=== PATIENT | male | born 1965 | race American Indian/Alaskan Native ===

== ENCOUNTER 2020-07-11 09:31 | Emergency (ER) | payer MEDICARE ==
--- NOTE | 2020-07-11 10:47 | Event Note ---
ED Screening Note ED Screening Note: Patient is a 54-year-old male who presents to the emergency room presenting signs of acute psychosis Difficult to obtain history due to patient's condition He tells me that whenever "he has sex his hair hurts" He has very tangential speech He is able to tell me that he ran out of his medications but is not able to tell me what they are or how long he has been out of them He is unable to provide me a history When asked if he wants to hurt himself he responds "no" When asked if he wants to hurt anyone else he responds "no" This initial assessment/diagnostic orders/clinical plan/treatment(s) is/are subject to change based on patients health status, clinical progression and re- assessment by fellow clinical providers in the ED. Further treatment and workup at subsequent clinical providers discretion. Patient/guardian urged not to elope from the ED as their condition may be serious if not clinically assessed and managed. Initial orders include: ED hold orders placed due to acute psychosis Mental health clearance orders placed Nurse Zayda and charge nurse Chase notified that patient needs to be escorted to mental health room ROLANDO
[2020-07-11] MEDS ORDERED: HALOPERIDOL LACTATE 5 MG/1 ML INJ IM PRN (11:22)
[2020-07-11] MEDS ORDERED: LORazepam 2 MG/ML VIAL IM PRN (11:22)
--- NOTE | 2020-07-11 11:28 | Emergency Department Report ---
ED General Adult HPI - General Chief complaint: Psych Stated complaint: TAMY PARADA PUI?: No Time Seen by Provider: 07/11/20 10:44 Source: patient, RN notes reviewed, old records reviewed Mode of arrival: Ambulatory Limitations: Other (This patient is acutely psychotic) - History of Present Illness Initial comments: The patient was evaluated in the emergency department for symptoms described in the history of present illness. He/she was evaluated in the context of the global COVID-19 pandemic, which necessitated consideration that the patient might be at risk for infection with the virus that causes COVID-19. Institutional protocols and algorithms that pertain to the evaluation of patients at risk for COVID-19 are in a state of rapid change based on information released by regulatory bodies including the CDC and federal and state organizations. These policies and algorithms were followed during the patient's care in the emergency department. Please note that these policies, procedures and recommendations changed on a rapid basis. The patient is a 54-year-old gentleman with a history of hypertension, and psychiatric disease. He is reportedly dropped off to this emergency room by a friend or relative, apparently, as per nursing documentation, for inability to care for self. The patient is not currently accompanied by friends, family at this time for collateral information or additional history. Patient denies physical pain to me at this time. He states "my hair has sex." The patient is acutely psychotic, tangential, but indicates he is not having physical pain. He is not able to describe the qualitative nature of her symptoms, exacerbating factors, relieving factors, or aggravating factors. Patient has envelopes and medical records with him, from 2018, and 2019. He appears to have a history of hypertension, and schizoaffective disorder. He has previously been on lisinopril, HCTZ, olanzapine, and escitalopram. -: unknown Radiation: other Quality: other Consistency: other Improves with: other Worsens with: other Associated Symptoms: other - Related Data Allergies Allergy/AdvReac Type Severity Reaction Status Date / Time No Known Allergies Allergy Verified 07/11/20 11:24 ED Review of Systems ROS: Stated complaint: TAMY EVCAREN Other details as noted in HPI Comment: Unobtainable due to pts medical conditions (Patient is acutely psychotic and disorganized) ED Past Medical Hx - Past Medical History Hx Hypertension: Yes Hx Diabetes: Yes Additional medical history: SCHIZOEFFCTIVE DISORDER - Social History Smoking Status: Never Smoker Substance Use Type: None ED Physical Exam - General Limitations: Other (Acute psychosis) General appearance: in no apparent distress, obese - Head Head exam: Present: atraumatic, normocephalic - Eye Eye exam: Present: normal appearance, EOMI. Absent: nystagmus - ENT ENT exam: Present: normal exam, mucous membranes moist, normal external ear exam, other (The patient is edentulous. The patient has moist mucous membranes.) - Neck Neck exam: Present: normal inspection, full ROM. Absent: tenderness, meningismus - Respiratory Respiratory exam: Present: normal lung sounds bilaterally. Absent: respiratory distress, wheezes, rales, rhonchi, stridor, chest wall tenderness, accessory muscle use, decreased breath sounds, prolonged expiratory - Cardiovascular Cardiovascular Exam: Present: regular rate, normal rhythm, normal heart sounds. Absent: bradycardia, tachycardia, irregular rhythm, systolic murmur, diastolic murmur, rubs, gallop - GI/Abdominal GI/Abdominal exam: Present: soft. Absent: distended, tenderness, guarding, rebound, rigid, pulsatile mass - Rectal Rectal exam: Present: deferred - Extremities Exam Extremities exam: Present: normal inspection, full ROM, other (2+ pulses noted in the bilateral upper and lower extremities. There is no palpable cord. negative Homans sign. Muscular compartments are soft. The pelvis is stable.). Absent: pedal edema, calf tenderness - Back Exam Back exam: Present: normal inspection, full ROM. Absent: tenderness, CVA tenderness (R), CVA tenderness (L), paraspinal tenderness, vertebral tenderness - Neurological Exam Neurological exam: Present: alert, other (The patient walks with a steady gait. There is no facial droop. The tongue is midline. There is 5 out of 5 strength in 4 extremities. Sensation is intact to light touch in 4 extremities) - Psychiatric Psychiatric exam: Absent: agitated - Skin Skin exam: Present: warm, dry, intact, normal color. Absent: rash ED Course Vital Signs 07/11/20 07/11/20 09:49 11:45 Temperature 98.9 F Pulse Rate 87 86 Respiratory 20 24 Rate Blood Pressure 170/111 Blood Pressure 194/140 [Right] O2 Sat by Pulse 93 100 Oximetry - Reevaluation(s) Reevaluation #1: 07/11/20 11:29 Differential diagnosis, including but not limited to: Psychosis, medical clearance for psychiatric placement, chronic hypertension Assessment and plan: 54-year-old gentleman, who is afebrile with reassuring vital signs with exception of chronic hypertension, as per review of old med ications, supposed to be on lisinopril and HCTZ, elevated blood pressure not acutely decompensated, does not require emergent de-escalation at this time, please reference the [employer] clinical policy on asymptomatic hypertension, who essentially is presenting with what appears to be decompensated psychosis, likely secondary to medication noncompliance. Initial pulse ox of 93% reviewed and appreciated. X-ray the chest will be obtained, and I have specifically requested that nursing team repeat pulse oximetry. If patient persistently hypoxic, he will be placed on isolation, and he will be given a trial of ambulation. Assuming no significant desaturation, patient would not require medical admission for possible Covid. Patient is placed on a 1013 for acute psychosis and inability to care for self/acute crisis. Appropriate laboratory studies will be ordered to exclude emergent toxicologic/metabolic conditions. Urinalysis pending. Reassess after initial data points. 07/11/20 13:00 X-ray unremarkable. Laboratory studies thus far unremarkable, CK, magnesium level pending. Chest x-ray unremarkable, repeat pulse ox acceptable. Elevated blood pressure chronic. 07/11/20 14:28 Laboratory studies unremarkable. CK, magnesium unremarkable. Urinalysis pending. At this point time, patient does not appear to have an immediate medical contraindication to psychiatric admission, evaluation, consultation and placement. ED Medical Decision Making - Lab Data Result diagrams: 07/11/20 11:23 07/11/20 11:23 Vital Signs 07/11/20 09:49 Temperature 98.9 F Pulse Rate 87 Respiratory 20 Rate Blood Pressure 170/111 O2 Sat by Pulse 93 Oximetry Vital Signs 07/11/20 07/11/20 09:49 11:45 Temperature 98.9 F Pulse Rate 87 86 Respiratory 20 24 Rate Blood Pressure 170/111 Blood Pressure 194/140 [Right] O2 Sat by Pulse 93 100 Oximetry Lab Results 07/11/20 07/11/20 07/11/20 Range/Units 11:23 11:23 11:23 WBC (4.5-11.0) K/mm3 RBC (3.65-5.03) M/mm3 Hgb (11.8-15.2) gm/dl Hct (35.5-45.6) % MCV (84-94) fl MCH (28-32) pg MCHC (32-34) % RDW (13.2-15.2) % Plt Count (140-440) K/mm3 Sodium 139 (137-145) mmol/L Potassium 3.5 L (3.6-5.0) mmol/L Chloride 101.9 (98-107) mmol/L Carbon Dioxide 27 (22-30) mmol/L Anion Gap 14 mmol/L BUN 13 (9-20) mg/dL Creatinine 1.0 (0.8-1.3) mg/dL Estimated GFR > 60 ml/min BUN/Creatinine Ratio 13 % Glucose 88 (75-100) mg/dL Calcium 9.0 (8.4-10.2) mg/dL Total Bilirubin 1.30 H (0.1-1.2) mg/dL AST 19 (5-40) units/L ALT 15 (7-56) units/L Alkaline Phosphatase 73 (35-129) units/L Total Protein 6.8 (6.3-8.2) g/dL Albumin 4.3 (3.9-5) g/dL Albumin/Globulin Ratio 1.7 % Salicylates < 0.3 L (2.8-20.0) mg/dL Acetaminophen 5.0 L (10.0-30.0) ug/mL Plasma/Serum Alcohol (0-0.07) % 07/11/20 07/11/20 Range/Units 11:23 11:23 WBC 8.1 (4.5-11.0) K/mm3 RBC 4.51 (3.65-5.03) M/mm3 Hgb 13.9 (11.8-15.2) gm/dl Hct 40.7 (35.5-45.6) % MCV 90 (84-94) fl MCH 31 (28-32) pg MCHC 34 (32-34) % RDW 13.1 L (13.2-15.2) % Plt Count 166 (140-440) K/mm3 Sodium (137-145) mmol/L Potassium (3.6-5.0) mmol/L Chloride (98-107) mmol/L Carbon Dioxide (22-30) mmol/L Anion Gap mmol/L BUN (9-20) mg/dL Creatinine (0.8-1.3) mg/dL Estimated GFR ml/min BUN/Creatinine Ratio % Glucose (75-100) mg/dL Calcium (8.4-10.2) mg/dL Total Bilirubin (0.1-1.2) mg/dL AST (5-40) units/L ALT (7-56) units/L Alkaline Phosphatase (35-129) units/L Total Protein (6.3-8.2) g/dL Albumin (3.9-5) g/dL Albumin/Globulin Ratio % Salicylates (2.8-20.0) mg/dL Acetaminophen (10.0-30.0) ug/mL Plasma/Serum Alcohol < 0.01 (0-0.07) % - Radiology Data Radiology results: pending, report reviewed, image reviewed X-ray of the chest is negative for acute findings. CHEST 1 VIEW INDICATION: Medical clearance, pulse ox 93%. COMPARISON: None FINDINGS: Support devices: None. Heart: Within normal limits. Lungs/Pleura: No acute air space or interstitial disease. Additional findings: None. IMPRESSION: No acute findings. Signer Name: Smith Gutierrez Jr, MD Signed: 07/11/2020 10:50 AM Workstation Name: [id number] Critical care attestation.: If time is entered above; I have spent that time in minutes in the direct care of this critically ill patient, excluding procedure time. ED Disposition Clinical Impression: Elevated blood pressure reading, Psychosis, Medical clearance for psychiatric admission Disposition: [id number]/TX-65 PSY HOSP/PSY UNIT Is pt being admited?: No Does the pt Need Aspirin: No Condition: Good Referrals: PRIMARY CARE, [Primary Care Provider] - 3-5 Days
[2020-07-11 11:44] LABS: Hematocrit 40.7 % (35.5-45.6); Hemoglobin 13.9 gm/dl (11.8-15.2); Mean Corpuscular HGB Conc 34 % (32-34); Mean Corpuscular Volume 90 fl (84-94); Platelet Count 166 K/mm3 (140-440); Red Blood Count 4.51 M/mm3 (3.65-5.03); Red Cell Distribution Width 13.1 % (13.2-15.2)
--- NOTE | 2020-07-11 11:55 | XRay Report ---
CHEST 1 VIEW INDICATION: Medical clearance, pulse ox 93%. COMPARISON: None FINDINGS: Support devices: None. Heart: Within normal limits. Lungs/Pleura: No acute air space or interstitial disease. Additional findings: None. IMPRESSION: No acute findings. Signer Name: Smith Gutierrez Jr, MD Signed: 07/11/2020 11:50 AM Workstation Name: [id number]
[2020-07-11 12:08] LABS: Alanine Aminotransferase 15 units/L (7-56); Albumin 4.3 g/dL (3.9-5); BUN/Creatinine Ratio 13; Blood Urea Nitrogen 13 mg/dL (9-20); Hemolysis Index 10
[2020-07-11] MEDS: LISINOPRIL 5 MG TAB PO SCH (12:16)
[2020-07-11] MEDS: hydroCHLOROthiazide 25 MG TAB PO SCH (12:16)
[2020-07-11 17:10] LABS: Amphetamine Screen,Urine Negative; Benzodiazepines Screen,Urine Negative; Cannabinoid Screen,Urine Negative; Cocaine Screen,Urine Negative; Methadone Screen,Urine Negative; Opiate Screen,Urine Negative
[2020-07-11 17:15] LABS: Bacteria,Urine 1+ /HPF (Negative); Bilirubin,Urine NEG (Negative); Blood,Urine NEG (Negative); Color,Urine Yellow (Yellow); Mucus,Urine FEW /HPF; Protein,Urine <15 mg/dL mg/dL (Negative); Urobilinogen,Urine < 2.0 mg/dL (<2.0)
--- NOTE | 2020-07-12 10:54 | Consultation ---
History of Present Illness - Reason for Consult Consult date: 07/12/20 Reason for consult: psychosis - History of Present Psychiatric Illness Per ED Note: The patient is a 54-year-old gentleman with a history of hypertension, and psychiatric disease. He is reportedly dropped off to this emergency room by a friend or relative, apparently, as per nursing documentation, for inability to care for self. The patient is not currently accompanied by friends, family at this time for collateral information or additional history. Patient denies physical pain to me at this time. He states "my hair has sex." The patient is acutely psychotic, tangential, but indicates he is not having physical pain. He is not able to describe the qualitative nature of her symptoms, exacerbating factors, relieving factors, or aggravating factors. Patient has envelopes and medical records with him, from 2018, and 2019. He appears to have a history of hypertension, and schizoaffective disorder. He has previously been on lisinopril, HCTZ, olanzapine, and escitalopram. During my assessment of 54y/o Freddy Sosa, he is lying down awake. He is a/o x 2. He is a poor historian and unable to give a lot of insight. His thoughts are disorganized. He seems unsure of the questions being asked of him. He is responding to internal stimuli. The patient is pausing in between responses and appears to be listening to something. When asking was he hallucinating, the patient paused and starting tapping his leg. He says "no, I don't think so. I got a headache." The patient did not respond when asked about SI/HI. He just kept tapping his finger on his leg, replying "I got a headache." He then says "I got problems, psychological problems." He could not tell me what the problems were. The patient then began repeating, "I got problems" like 4 times in a row. PAST PSYCHIATRIC HISTORY Unable to assess PAST MEDICAL HISTORY: HTN documented Family Psychiatric History: None reported or documented SOCIAL HISTORY Unable to assess REVIEW OF SYSTEMS Unable to assess MENTAL STATUS EXAMINATION General Appearance and Behavior: Age appropriate, wearing appropriate clothes, good eye contact, calm, cooperative Mood: N/A Affect and affective range: restricted Thought Process: disorganized Thought Content: responding to internal stimuli Speech: Normal volume, Regular rate and rhythm Suicidal Ideation: N/A Homicidal Ideation: N/A Hallucinations: N/A Delusions: None elicited Impulse Control: normal Insight and Judgment: Poor Memory/Cognition: Poor Attention: Poor Orientation: a/o x 2 Assessment (1) Acute Psychosis Plan Start Risperidone 0.5mg po BID Start Trazodone 50mg po qhs Sitter per primary Medical: per primary Disposition: Recommend acute inpatient psychiatric treatment The patient to abstain from all illicit drug use Will follow. Thank you for this consult. Case staffed with Dr. Hurtado Medications and Allergies Allergies Allergy/AdvReac Type Severity Reaction Status Date / Time No Known Allergies Allergy Verified 07/11/20 11:24 Active Meds: Active Medications Haloperidol Lactate (Haloperidol Lactate 5 Mg/1 Ml Inj) 5 mg IM Q6HR PRN PRN Reason: Agitation Last Admin: 07/12/20 08:39 Dose: 5 mg Documented by: Hydrochlorothiazide (Hydrochlorothiazide 25 Mg Tab) 25 mg PO QDAY [facility] Last Admin: 07/11/20 12:16 Dose: 25 mg Documented by: Lisinopril (Lisinopril 5 Mg Tab) 5 mg PO QDAY [facility] Last Admin: 07/11/20 12:16 Dose: 5 mg Documented by: Lorazepam (Lorazepam 2 Mg/Ml Vial) 2 mg IM Q4HR PRN PRN Reason: Agitation Last Admin: 07/12/20 08:39 Dose: 2 mg Documented by: Mental Status Exam - Vital signs Last Vital Signs Temp 98.9 F 07/12/20 09:20 Pulse 88 07/12/20 09:20 Resp 156 H 07/12/20 09:20 BP 160/110 07/12/20 09:20 Pulse Ox 100 07/12/20 09:20 Results Result Diagrams: 07/11/20 11:23 07/11/20 11:23 Abnormal lab results 07/11/20 07/11/20 07/11/20 Range/Units 11:23 11:23 11:23 RDW (13.2-15.2) % Potassium 3.5 L (3.6-5.0) mmol/L Total Bilirubin 1.30 H (0.1-1.2) mg/dL Total Creatine Kinase (55-170) units/L Salicylates < 0.3 L (2.8-20.0) mg/dL Acetaminophen 5.0 L (10.0-30.0) ug/mL 07/11/20 07/11/20 Range/Units 11:23 11:23 RDW 13.1 L (13.2-15.2) % Potassium (3.6-5.0) mmol/L Total Bilirubin (0.1-1.2) mg/dL Total Creatine Kinase 357 H (55-170) units/L Salicylates (2.8-20.0) mg/dL Acetaminophen (10.0-30.0) ug/mL All other labs normal.
[2020-07-12] MEDS: hydroCHLOROthiazide 25 MG TAB PO SCH (11:09)
[2020-07-12] MEDS: LISINOPRIL 5 MG TAB PO SCH (11:09)
[2020-07-12] MEDS ORDERED: risperiDONE 0.25 MG TAB PO SCH (12:00)
[2020-07-12 20:04] VITALS: BP 134/89
[2020-07-12] MEDS ORDERED: traZODone 50 MG TAB PO SCH (22:00)
== END 2020-07-12 20:04 ==
LOC: ED 09:31
DX: F29 Unspecified psychosis not due to a substance or known physiological condition (principal); Z20.822 Contact with and (suspected) exposure to COVID-19; Z04.6 Encounter for general psychiatric examination, requested by authority; I10 Essential (primary) hypertension; E11.9 Type 2 diabetes mellitus without complications
CPT/HCPCS: 36415; 71045; 80053; 80307; 80320; 81001; 82550; 82962; 83735; 85027; 96372; G0480; J1630; J2060; U0003

== ENCOUNTER 2020-07-12 15:15 | Inpatient (IN) | payer MEDICARE ==
[2020-07-12] MEDS: traZODone 50 MG TAB PO SCH (22:02)
[2020-07-13 07:39] LABS: Basophils % (Auto) 0.4 % (0.0-1.8); Eosinophils # (Auto) 0.1 K/mm3 (0.0-0.4); Eosinophils % (Auto) 1.1 % (0.0-4.3); Hematocrit 47.4 % (35.5-45.6); Hemoglobin 15.6 gm/dl (11.8-15.2); Lymphocytes # (Auto) 1.7 K/mm3 (1.2-5.4); Lymphocytes % (Auto) 21.1 % (13.4-35.0); Mean Corpuscular HGB Conc 33 % (32-34); Mean Corpuscular Volume 92 fl (84-94); Monocytes # (Auto) 0.4 K/mm3 (0.0-0.8); Monocytes % (Auto) 5.3 % (0.0-7.3); Platelet Count 203 K/mm3 (140-440); Red Blood Count 5.16 M/mm3 (3.65-5.03); Red Cell Distribution Width 13.1 % (13.2-15.2)
[2020-07-13 08:01] LABS: Alanine Aminotransferase 15 units/L (7-56); Albumin 4.6 g/dL (3.9-5); BUN/Creatinine Ratio 13; Blood Urea Nitrogen 14 mg/dL (9-20); Calcium 10.2 mg/dL (8.4-10.2); Chol/HDL Ratio 1.71 %; HDL Cholesterol 66 mg/dL (40-59); Hemolysis Index 20; LDL Cholesterol,Direct 44 mg/dL (50-130)
--- NOTE | 2020-07-13 10:11 | History and Physical Report ---
GP History & Physical - History of Present Illness Date of admission: 07/12/20 Date of Examination: 07/13/20 Reason for Admission: Impaired reality testing, Severe anxiety/depression, Unable to care for self History of Present Illness: Per ED Note: The patient is a 54-year-old gentleman with a history of hypertension, and psychiatric disease. He is reportedly dropped off to this emergency room by a friend or relative, apparently, as per nursing documentation, for inability to care for self. The patient is not currently accompanied by friends, family at this time for collateral information or additional history. Patient denies physical pain to me at this time. He states "my hair has sex." The patient is acutely psychotic, tangential, but indicates he is not having physical pain. He is not able to describe the qualitative nature of her symptoms, exacerbating factors, relieving factors, or aggravating factors. Patient has envelopes and medical records with him, from 2018, and 2019. He appears to have a history of hypertension, and schizoaffective disorder. He has previously been on lisinopril, HCTZ, olanzapine, and escitalopram. Per my assessment in the ED: During my assessment of 54y/o Agus Sosa, he is lying down awake. He is a/o x 2. He is a poor historian and unable to give a lot of insight. His thoughts are disorganized. He seems unsure of the questions being asked of him. He is responding to internal stimuli. The patient is pausing in between responses and appears to be listening to something. When asking was he hallucinating, the patient paused and starting tapping his leg. He says "no, I don't think so. I got a headache." The patient did not respond when asked about SI/HI. He just kept tapping his finger on his leg, replying "I got a headache." He then says "I got problems, psychological problems." He could not tell me what the problems were. The patient then began repeating, "I got problems" like 4 times in a row. Agus Sosa is a 54y/o male patient who I first saw in the ED. The patient was disorganized and unable to focus and answer questions appropriately. He pauses in between questions. During my assessment today, he is still disorganized, he is rambling, and difficult to follow. The patient has poor insight. He says he is hallucinating. He was unable to verbalize what they were, but continued to rant and ramble. When asking the patient about SI/HI. He replied "I don't know." PAST PSYCHIATRIC HISTORY Unable to assess PAST MEDICAL HISTORY: HTN documented Family Psychiatric History: None reported or documented SOCIAL HISTORY Unable to assess REVIEW OF SYSTEMS Unable to assess MENTAL STATUS EXAMINATION General Appearance and Behavior: Age appropriate, wearing appropriate clothes, good eye contact, calm, cooperative Mood: N/A Affect and affective range: restricted Thought Process: disorganized Thought Content: responding to internal stimuli Speech: Normal volume, Regular rate and rhythm Suicidal Ideation: N/A Homicidal Ideation: N/A Hallucinations: N/A Delusions: None elicited Impulse Control: normal Insight and Judgment: Poor Memory/Cognition: Poor Attention: Poor Orientation: a/o x 2 Assessment (1) Schizophrenia Treatment Plan Patient admitted for inpatient psychiatric evaluation, medication adjustment and close monitoring The patient's behavior, mood, sleep and appetite will be closely monitored. Patient enrolled in individual and group therapeutic sessions and encouraged to attend. Patient provided with a safe and structured environment. Patient's physical health needs will be addressed by the Hospitalist. Hospital ist Consulted Labs including CBC, CMP, Lipid profile and Hemoglobin A1C levels ordered for baseline reference Social Assessment will be completed and the Software Team Leader will work with patient and family to ensure a suitable and safe disposition Medication adjustment will be made as clinically indicated Risperidone 1mg po BID Trazodone 50mg po qhs Depakote DR 125mg po BID Usual Wellness Spiritism/Preservation: - Start Trazodone 50 mg po QHS & 50 mg po QHS PRN between 10 PM & 2 AM for insomnia - Start Melatonin 5 mg po QHS to promote circadian rhythm - Start [place]-3 for brain health, reduce impulsivity, and as adjunctive treatment for mood disorder, continue upon discharge given overall benefits. - Start B1 prophylaxis with 200 mg po for 5 days The patient agreed on the treatment plan, understood the risk, benefit, alternative treatment, potential consequence of no treatment, and gave informed consent. Estimated days: 7 Post hospital care: primary care provider, psychiatric provider This certifies that Agus Sosa will be treated for the symptoms of psychosis, disorganized thoughts and aggression. Case staffed with Dr. Hurtado Legal Status: Voluntary Reaction to Hospitalization: Accepting Medications and Allergies Allergies Allergy/AdvReac Type Severity Reaction Status Date / Time No Known Allergies Allergy Verified 07/11/20 11:24 Home Medications Medication Instructions Recorded Confirmed Last Taken Type Lisinopril [Zestril] 5 mg PO QDAY 07/13/20 07/13/20 07/12/20 10:00 History hydroCHLOROthiazide [HCTZ] 25 mg PO QDAY 07/13/20 07/13/20 07/12/20 10:00 History risperiDONE [RisperDAL] 0.5 mg PO BID 07/13/20 07/13/20 07/12/20 15:00 History traZODone [Desyrel] 50 mg PO QHS 07/13/20 07/13/20 07/12/20 22:00 History Active Meds: Active Medications Trazodone HCl (Trazodone 50 Mg Tab) 50 mg PO QHS [facility] Last Admin: 07/12/20 22:02 Dose: 50 mg Documented by: Results - Results Labs/Vitals: Laboratory Last Values WBC 7.9 K/mm3 (4.5-11.0) 07/13/20 06:57 RBC 5.16 M/mm3 (3.65-5.03) H 07/13/20 06:57 Hgb 15.6 gm/dl (11.8-15.2) H 07/13/20 06:57 Hct 47.4 % (35.5-45.6) H D 07/13/20 06:57 MCV 92 fl (84-94) 07/13/20 06:57 MCH 30 pg (28-32) 07/13/20 06:57 MCHC 33 % (32-34) 07/13/20 06:57 RDW 13.1 % (13.2-15.2) L 07/13/20 06:57 Plt Count 203 K/mm3 (140-440) 07/13/20 06:57 Lymph % (Auto) 21.1 % (13.4-35.0) 07/13/20 06:57 [place] % (Auto) 5.3 % (0.0-7.3) 07/13/20 06:57 Eos % (Auto) 1.1 % (0.0-4.3) 07/13/20 06:57 Baso % (Auto) 0.4 % (0.0-1.8) 07/13/20 06:57 Lymph # (Auto) 1.7 K/mm3 (1.2-5.4) 07/13/20 06:57 [place] # (Auto) 0.4 K/mm3 (0.0-0.8) 07/13/20 06:57 Eos # (Auto) 0.1 K/mm3 (0.0-0.4) 07/13/20 06:57 Baso # (Auto) 0.0 K/mm3 (0.0-0.1) 07/13/20 06:57 Seg Neutrophils % 72.1 % (40.0-70.0) H 07/13/20 06:57 Seg Neutrophils # 5.7 K/mm3 (1.8-7.7) 07/13/20 06:57 Sodium 138 mmol/L (137-145) 07/13/20 06:57 Potassium 3.4 mmol/L (3.6-5.0) L 07/13/20 06:57 Chloride 97.7 mmol/L (98-107) L 07/13/20 06:57 Carbon Dioxide 30 mmol/L (22-30) 07/13/20 06:57 Anion Gap 14 mmol/L 07/13/20 06:57 BUN 14 mg/dL (9-20) 07/13/20 06:57 Creatinine 1.1 mg/dL (0.8-1.3) 07/13/20 06:57 Estimated GFR > 60 ml/min 07/13/20 06:57 BUN/Creatinine Ratio 13 % 07/13/20 06:57 Glucose 100 mg/dL (75-100) 07/13/20 06:57 Hemoglobin A1c 5.5 % (4-6) 07/13/20 06:57 Calcium 10.2 mg/dL (8.4-10.2) 07/13/20 06:57 Total Bilirubin 0.70 mg/dL (0.1-1.2) 07/13/20 06:57 AST 22 units/L (5-40) 07/13/20 06:57 ALT 15 units/L (7-56) 07/13/20 06:57 Alkaline Phosphatase 86 units/L (35-129) 07/13/20 06:57 Total Protein 7.6 g/dL (6.3-8.2) 07/13/20 06:57 Albumin 4.6 g/dL (3.9-5) 07/13/20 06:57 Albumin/Globulin Ratio 1.5 % 07/13/20 06:57 Triglycerides 69 mg/dL (2-149) 07/13/20 06:57 Cholesterol 113 mg/dL (50-199) 07/13/20 06:57 LDL Cholesterol Direct 44 mg/dL (50-130) L 07/13/20 06:57 HDL Cholesterol 66 mg/dL (40-59) H 07/13/20 06:57 Cholesterol/HDL Ratio 1.71 % 07/13/20 06:57 TSH 2.420 mlU/mL (0.270-4.200) 07/13/20 06:57 Last Vital Signs Temp 97.6 F 07/12/20 22:00 Pulse 87 07/12/20 22:00 Resp 18 07/12/20 22:00 BP 142/88 07/12/20 22:00 Pulse Ox 97 07/12/20 22:00 Physical Examination - Constitutional Vitals: Vital Signs Temp Pulse Resp BP Pulse Ox 97.6 F 87 18 142/88 97 07/12/20 22:00 07/12/20 22:00 07/12/20 22:00 07/12/20 22:00 07/12/20 22:00 Temperature -Last 24 Hours Temperature 97.6 F Mental Status Exam - Vital signs Last Vital Signs Temp 97.6 F 07/12/20 22:00 Pulse 87 07/12/20 22:00 Resp 18 07/12/20 22:00 BP 142/88 07/12/20 22:00 Pulse Ox 97 07/12/20 22:00 Physician Certification - Certification Statement Physician Certification Statement: This is an acknowledgement statement that AGUS SOSA is a 54 year old M who requires inpatient psychiatric admission for treatment which could reasonably be expected to improve the patient's condition for Estimated period of time patient will need to remain in the hospital: [ ] Plan for post-hospital care: [ ]
[2020-07-13] MEDS: risperiDONE 1 MG TAB PO SCH ×2 (10:43→21:43)
[2020-07-13] MEDS: DIVALPROEX DR 125 MG TAB PO SCH ×2 (10:43→21:43)
--- NOTE | 2020-07-13 21:01 | Consultation ---
Medications and Allergies Allergies Allergy/AdvReac Type Severity Reaction Status Date / Time No Known Allergies Allergy Verified 07/11/20 11:24 Home Medications Medication Instructions Recorded Confirmed Last Taken Type Lisinopril [Zestril] 5 mg PO QDAY 07/13/20 07/13/20 07/12/20 10:00 History hydroCHLOROthiazide [HCTZ] 25 mg PO QDAY 07/13/20 07/13/20 07/12/20 10:00 History risperiDONE [RisperDAL] 0.5 mg PO BID 07/13/20 07/13/20 07/12/20 15:00 History traZODone [Desyrel] 50 mg PO QHS 07/13/20 07/13/20 07/12/20 22:00 History Active Meds: Active Medications Divalproex Sodium (Divalproex Dr 125 Mg Tab) 125 mg PO BID [facility] Last Admin: 07/13/20 10:43 Dose: 125 mg Documented by: Risperidone (Risperidone 1 Mg Tab) 1 mg PO BID [facility] Last Admin: 07/13/20 10:43 Dose: 1 mg Documented by: Trazodone HCl (Trazodone 50 Mg Tab) 50 mg PO QHS [facility] Last Admin: 07/12/20 22:02 Dose: 50 mg Documented by: Exam - Constitutional Vitals: Temp Pulse Resp BP Pulse Ox 98.1 F 97 H 20 139/91 98 07/13/20 08:41 07/13/20 08:41 07/13/20 08:41 07/13/20 08:41 07/13/20 08:41 Results - Labs CBC & Chem 7: 07/13/20 06:57 07/13/20 06:57 Labs: Abnormal lab results 07/13/20 07/13/20 Range/Units 06:57 06:57 RBC 5.16 H (3.65-5.03) M/mm3 Hgb 15.6 H (11.8-15.2) gm/dl Hct 47.4 H D (35.5-45.6) % RDW 13.1 L (13.2-15.2) % Seg Neutrophils % 72.1 H (40.0-70.0) % Potassium 3.4 L (3.6-5.0) mmol/L Chloride 97.7 L (98-107) mmol/L LDL Cholesterol Direct 44 L (50-130) mg/dL HDL Cholesterol 66 H (40-59) mg/dL
[2020-07-13] MEDS: traZODone 50 MG TAB PO SCH (21:43)
[2020-07-14] MEDS: ACETAMINOPHEN 325 MG TAB PO PRN (01:21)
--- NOTE | 2020-07-14 07:49 | Progress Note ---
Subjective Date of service: 07/14/20 Principal diagnosis: (1) Schizophrenia Subjective Comment: Psych Nurse: pt has been responding to internal stimuli most of the day. pt has been talking and laughing to himself, sprinting up and down the halls. Pt has been compliant w/ meds and has been able to focus on task off and on. Pt has been carrying and looking at a sheet of paper that has a word search puzzle on it most of the day. Pt has also been attempting to open the cabinets in the day room several times. Close monitoring continues. Psych Patient appears disorganized, was seen on the floor, relaxing moving extremities and tapping both wall and floor, appears restless too. Patient can be head talking to himself, appears tangential in responses, states that he does not know what to do, does not want to stay in the bed, sometimes can be had mumbling. Patient seems to be responding to internal stimulus, seen holding the Bible but unable to read it. MENTAL STATUS EXAMINATION General Appearance and Behavior: Age appropriate, good hygiene, not wearing appropriate clothes, good eye contact, cooperative polite with questioning. Cooperation: Participating/engaged Psychomotor Behavior: Psychomotor agitation Mood: Good Affect and affective range: euthymic, euphoric Thought Process:Circumstantial, Illogical, Thought Content: Flight of ideas, Illogical, Grandiose, Speech: pressured, loud volume at times Intellectual Functioning: Average Suicidal Ideation: Denies SI Homicidal Ideation: Denies HIl Impulse Control: Impaired Insight and Judgment: Limited insight and judgment Memory: Normal, Attention: Divided attention impaired Orientation: Alert, oriented, Assessment (1) Schizophrenia Treatment Plan Patient is very disorganized, appears manic and restless, did not also sleep overnight, pacing about and entering other patient rooms, appears to be a danger to slef and other patient, will put him on PRN and change meds Patient admitted for inpatient psychiatric evaluation, medication adjustment and close monitoring The patient's behavior, mood, sleep and appetite will be closely monitored. Patient enrolled in individual and group therapeutic sessions and encouraged to attend. Patient provided with a safe and structured environment. Patient's physical health needs will be addressed by the Hospitalist. Rikki guevara Consulted Labs including CBC, CMP, Lipid profile and Hemoglobin A1C levels ordered for baseline reference Social Assessment will be completed and the Tape Edge Machine Operator will work with patient and family to ensure a suitable and safe disposition Medication adjustment will be made as clinically indicated Risperidone 1mg po BID idscontinued Trazodone 50mg po qhs discontinued Depakote DR increased to 250 mg po TID Start patient on Geodon 20 mg BID and Remeron 15 mg QHS Usual Wellness Evangelical/Preservation: - Start Trazodone 50 mg po QHS & 50 mg po QHS PRN between 10 PM & 2 AM for insomnia - Start Melatonin 5 mg po QHS to promote circadian rhythm - Start [place]-3 for brain health, reduce impulsivity, and as adjunctive treatment for mood disorder, continue upon discharge given overall benefits. - Start B1 prophylaxis with 200 mg po for 5 days The patient agreed on the treatment plan, understood the risk, benefit, alternative treatment, potential consequence of no treatment, and gave informed consent. Estimated days: 7 Post hospital care: primary care provider, psychiatric provider This certifies that Freddy Sosa will be treated for the symptoms of psychosis, disorganized thoughts and aggression. Case staffed with Dr. Hurtado Medications and Allergies Allergies Allergy/AdvReac Type Severity Reaction Status Date / Time No Known Allergies Allergy Verified 07/11/20 11:24 Home Medications Medication Instructions Recorded Confirmed Last Taken Type Lisinopril [Zestril] 5 mg PO QDAY 07/13/20 07/13/20 07/12/20 10:00 History hydroCHLOROthiazide [HCTZ] 25 mg PO QDAY 07/13/20 07/13/20 07/12/20 10:00 History risperiDONE [RisperDAL] 0.5 mg PO BID 07/13/20 07/13/20 07/12/20 15:00 History traZODone [Desyrel] 50 mg PO QHS 07/13/20 07/13/20 07/12/20 22:00 History Active Meds: Active Medications Acetaminophen (Acetaminophen 325 Mg Tab) 650 mg PO Q6H PRN PRN Reason: Pain, Mild (1-3) Last Admin: 07/14/20 01:21 Dose: 650 mg Documented by: Divalproex Sodium (Divalproex Dr 125 Mg Tab) 125 mg PO BID [facility] Last Admin: 07/13/20 21:43 Dose: 125 mg Documented by: Risperidone (Risperidone 1 Mg Tab) 1 mg PO BID [facility] Last Admin: 07/13/20 21:43 Dose: 1 mg Documented by: Trazodone HCl (Trazodone 50 Mg Tab) 50 mg PO QHS [facility] Last Admin: 07/13/20 21:43 Dose: 50 mg Documented by: Results - Results Labs/Vitals: Laboratory Last Values WBC 7.9 K/mm3 (4.5-11.0) 07/13/20 06:57 RBC 5.16 M/mm3 (3.65-5.03) H 07/13/20 06:57 Hgb 15.6 gm/dl (11.8-15.2) H 07/13/20 06:57 Hct 47.4 % (35.5-45.6) H D 07/13/20 06:57 MCV 92 fl (84-94) 07/13/20 06:57 MCH 30 pg (28-32) 07/13/20 06:57 MCHC 33 % (32-34) 07/13/20 06:57 RDW 13.1 % (13.2-15.2) L 07/13/20 06:57 Plt Count 203 K/mm3 (140-440) 07/13/20 06:57 Lymph % (Auto) 21.1 % (13.4-35.0) 07/13/20 06:57 [place] % (Auto) 5.3 % (0.0-7.3) 07/13/20 06:57 Eos % (Auto) 1.1 % (0.0-4.3) 07/13/20 06:57 Baso % (Auto) 0.4 % (0.0-1.8) 07/13/20 06:57 Lymph # (Auto) 1.7 K/mm3 (1.2-5.4) 07/13/20 06:57 [place] # (Auto) 0.4 K/mm3 (0.0-0.8) 07/13/20 06:57 Eos # (Auto) 0.1 K/mm3 (0.0-0.4) 07/13/20 06:57 Baso # (Auto) 0.0 K/mm3 (0.0-0.1) 07/13/20 06:57 Seg Neutrophils % 72.1 % (40.0-70.0) H 07/13/20 06:57 Seg Neutrophils # 5.7 K/mm3 (1.8-7.7) 07/13/20 06:57 Sodium 138 mmol/L (137-145) 07/13/20 06:57 Potassium 3.4 mmol/L (3.6-5.0) L 07/13/20 06:57 Chloride 97.7 mmol/L (98-107) L 07/13/20 06:57 Carbon Dioxide 30 mmol/L (22-30) 07/13/20 06:57 Anion Gap 14 mmol/L 07/13/20 06:57 BUN 14 mg/dL (9-20) 07/13/20 06:57 Creatinine 1.1 mg/dL (0.8-1.3) 07/13/20 06:57 Estimated GFR > 60 ml/min 07/13/20 06:57 BUN/Creatinine Ratio 13 % 07/13/20 06:57 Glucose 100 mg/dL (75-100) 07/13/20 06:57 POC Glucose 95 mg/dL (70-105) 07/13/20 16:02 Hemoglobin A1c 5.5 % (4-6) 07/13/20 06:57 Calcium 10.2 mg/dL (8.4-10.2) 07/13/20 06:57 Total Bilirubin 0.70 mg/dL (0.1-1.2) 07/13/20 06:57 AST 22 units/L (5-40) 07/13/20 06:57 ALT 15 units/L (7-56) 07/13/20 06:57 Alkaline Phosphatase 86 units/L (35-129) 07/13/20 06:57 Total Protein 7.6 g/dL (6.3-8.2) 07/13/20 06:57 Albumin 4.6 g/dL (3.9-5) 07/13/20 06:57 Albumin/Globulin Ratio 1.5 % 07/13/20 06:57 Triglycerides 69 mg/dL (2-149) 07/13/20 06:57 Cholesterol 113 mg/dL (50-199) 07/13/20 06:57 LDL Cholesterol Direct 44 mg/dL (50-130) L 07/13/20 06:57 HDL Cholesterol 66 mg/dL (40-59) H 07/13/20 06:57 Cholesterol/HDL Ratio 1.71 % 07/13/20 06:57 TSH 2.420 mlU/mL (0.270-4.200) 07/13/20 06:57 Last Vital Signs Temp 97.3 F L 07/13/20 21:00 Pulse 79 07/13/20 21:00 Resp 15 07/13/20 21:00 BP 143/93 07/13/20 21:00 Pulse Ox 98 07/13/20 21:00
[2020-07-14] MEDS: risperiDONE 1 MG TAB PO SCH (10:29)
[2020-07-14] MEDS: DIVALPROEX DR 125 MG TAB PO SCH ×3 (10:29→20:55)
[2020-07-14] MEDS ORDERED: HALOPERIDOL LACTATE 5 MG/1 ML INJ IM PRN (11:00)
[2020-07-14] MEDS ORDERED: LORazepam 2 MG/ML VIAL IM PRN (11:00)
[2020-07-14] MEDS: ZIPRASIDONE 20 MG CAP PO SCH ×2 (14:52→21:53)
[2020-07-14] MEDS: traZODone 50 MG TAB PO SCH (21:53)
[2020-07-14] MEDS: MIRTAZAPINE 15 MG TAB PO SCH (21:54)
--- NOTE | 2020-07-15 08:17 | Progress Note ---
Subjective Date of service: 07/15/20 Principal diagnosis: (1) Schizophrenia Subjective Comment: Psych Nurse: Patient is alert and oriented to self. Pt observed sitting on the floor in his room, talking to himself, and making loud incomprehensible sounds. Patient however, is compliant with meds and will follow commands. All safety precautions are in place. Psych Patient reported doing okay, states he slept okay, and that the medication is wo rkig for him but then endorses auditory and visual hallucination which patient is unable to describe, patient seems to be saying yes to everything including SI, HI, and yes to non specific or directive questions. Patient still having generalized psychomotor disturbances and pacing the hallway alot unable to sit still. MENTAL STATUS EXAMINATION General Appearance and Behavior: Age appropriate, good hygiene, not wearing appropriate clothes, good eye contact, cooperative polite with questioning. Cooperation: Participating/engaged Psychomotor Behavior: Psychomotor agitation Mood: Good Affect and affective range: euthymic, euphoric Thought Process:Circumstantial, Illogical, Thought Content: Flight of ideas, Illogical, Grandiose, Speech: pressured, loud volume at times Intellectual Functioning: Average Suicidal Ideation: Denies SI Homicidal Ideation: Denies HIl Impulse Control: Impaired Insight and Judgment: Limited insight and judgment Memory: Normal, Attention: Divided attention impaired Orientation: Alert, oriented, Assessment (1) Schizophrenia Treatment Plan Patient is very disorganized, appears manic and restless, did not also sleep overnight, pacing about and entering other patient rooms, appears to be a danger to slef and other patient, will put him on PRN and change meds Patient admitted for inpatient psychiatric evaluation, medication adjustment and close monitoring The patient's behavior, mood, sleep and appetite will be closely monitored. Patient enrolled in individual and group therapeutic sessions and encouraged to attend. Patient provided with a safe and structured environment. Patient's physical health needs will be addressed by the Hospitalist. Hospitalist Consulted Labs including CBC, CMP, Lipid profile and Hemoglobin A1C levels ordered for baseline reference Social Assessment will be completed and the Drafter Detail will work with patient and family to ensure a suitable and safe disposition Medication adjustment will be made as clinically indicated Start patient on Clonidine tomorrow. Depakote DR increased to 250 mg po TID Increase Geodon 40 mg BID and Remeron 15 mg QHS Usual Wellness Congregation/Preservation: - Start Trazodone 50 mg po QHS & 50 mg po QHS PRN between 10 PM & 2 AM for insomnia - Start Melatonin 5 mg po QHS to promote circadian rhythm - Start [place]-3 for brain health, reduce impulsivity, and as adjunctive treatment for mood disorder, continue upon discharge given overall benefits. - Start B1 prophylaxis with 200 mg po for 5 days The patient agreed on the treatment plan, understood the risk, benefit, alternative treatment, potential consequence of no treatment, and gave informed consent. Estimated days: 7 Post hospital care: primary care provider, psychiatric provider This certifies that Freddy Sosa will be treated for the symptoms of psychosis, disorganized thoughts and aggression. Case staffed with Dr. Hurtado Medications and Allergies Allergies Allergy/AdvReac Type Severity Reaction Status Date / Time No Known Allergies Allergy Verified 07/11/20 11:24 Home Medications Medication Instructions Recorded Confirmed Last Taken Type Lisinopril [Zestril] 5 mg PO QDAY 07/13/20 07/13/20 07/12/20 10:00 History hydroCHLOROthiazide [HCTZ] 25 mg PO QDAY 07/13/20 07/13/20 07/12/20 10:00 History risperiDONE [RisperDAL] 0.5 mg PO BID 07/13/20 07/13/20 07/12/20 15:00 History traZODone [Desyrel] 50 mg PO QHS 07/13/20 07/13/20 07/12/20 22:00 History Active Meds: Active Medications Acetaminophen (Acetaminophen 325 Mg Tab) 650 mg PO Q6H PRN PRN Reason: Pain, Mild (1-3) Last Admin: 07/14/20 01:21 Dose: 650 mg Documented by: Divalproex Sodium (Divalproex Dr 125 Mg Tab) 250 mg PO TID [facility] Last Admin: 07/14/20 20:55 Dose: 250 mg Documented by: Haloperidol Lactate (Haloperidol Lactate 5 Mg/1 Ml Inj) 5 mg IM Q6H PRN PRN Reason: Agitation Lorazepam (Lorazepam 2 Mg/Ml Vial) 2 mg IM Q4H PRN PRN Reason: Agitation Mirtazapine (Mirtazapine 15 Mg Tab) 15 mg PO QHS [facility] Last Admin: 07/14/20 21:54 Dose: 15 mg Documented by: Trazodone HCl (Trazodone 50 Mg Tab) 50 mg PO QHS [facility] Last Admin: 07/14/20 21:53 Dose: 50 mg Documented by: Ziprasidone (Ziprasidone 20 Mg Cap) 20 mg PO BID [facility] Last Admin: 07/14/20 21:53 Dose: 20 mg Documented by: Results - Results Labs/Vitals: Laboratory Last Values WBC 7.9 K/mm3 (4.5-11.0) 07/13/20 06:57 RBC 5.16 M/mm3 (3.65-5.03) H 07/13/20 06:57 Hgb 15.6 gm/dl (11.8-15.2) H 07/13/20 06:57 Hct 47.4 % (35.5-45.6) H D 07/13/20 06:57 MCV 92 fl (84-94) 07/13/20 06:57 MCH 30 pg (28-32) 07/13/20 06:57 MCHC 33 % (32-34) 07/13/20 06:57 RDW 13.1 % (13.2-15.2) L 07/13/20 06:57 Plt Count 203 K/mm3 (140-440) 07/13/20 06:57 Lymph % (Auto) 21.1 % (13.4-35.0) 07/13/20 06:57 [place] % (Auto) 5.3 % (0.0-7.3) 07/13/20 06:57 Eos % (Auto) 1.1 % (0.0-4.3) 07/13/20 06:57 Baso % (Auto) 0.4 % (0.0-1.8) 07/13/20 06:57 Lymph # (Auto) 1.7 K/mm3 (1.2-5.4) 07/13/20 06:57 [place] # (Auto) 0.4 K/mm3 (0.0-0.8) 07/13/20 06:57 Eos # (Auto) 0.1 K/mm3 (0.0-0.4) 07/13/20 06:57 Baso # (Auto) 0.0 K/mm3 (0.0-0.1) 07/13/20 06:57 Seg Neutrophils % 72.1 % (40.0-70.0) H 07/13/20 06:57 Seg Neutrophils # 5.7 K/mm3 (1.8-7.7) 07/13/20 06:57 Sodium 138 mmol/L (137-145) 07/13/20 06:57 Potassium 3.4 mmol/L (3.6-5.0) L 07/13/20 06:57 Chloride 97.7 mmol/L (98-107) L 07/13/20 06:57 Carbon Dioxide 30 mmol/L (22-30) 07/13/20 06:57 Anion Gap 14 mmol/L 07/13/20 06:57 BUN 14 mg/dL (9-20) 07/13/20 06:57 Creatinine 1.1 mg/dL (0.8-1.3) 07/13/20 06:57 Estimated GFR > 60 ml/min 07/13/20 06:57 BUN/Creatinine Ratio 13 % 07/13/20 06:57 Glucose 100 mg/dL (75-100) 07/13/20 06:57 POC Glucose 93 mg/dL (70-105) 07/15/20 06:46 Hemoglobin A1c 5.5 % (4-6) 07/13/20 06:57 Calcium 10.2 mg/dL (8.4-10.2) 07/13/20 06:57 Total Bilirubin 0.70 mg/dL (0.1-1.2) 07/13/20 06:57 AST 22 units/L (5-40) 07/13/20 06:57 ALT 15 units/L (7-56) 07/13/20 06:57 Alkaline Phosphatase 86 units/L (35-129) 07/13/20 06:57 Total Protein 7.6 g/dL (6.3-8.2) 07/13/20 06:57 Albumin 4.6 g/dL (3.9-5) 07/13/20 06:57 Albumin/Globulin Ratio 1.5 % 07/13/20 06:57 Triglycerides 69 mg/dL (2-149) 07/13/20 06:57 Cholesterol 113 mg/dL (50-199) 07/13/20 06:57 LDL Cholesterol Direct 44 mg/dL (50-130) L 07/13/20 06:57 HDL Cholesterol 66 mg/dL (40-59) H 07/13/20 06:57 Cholesterol/HDL Ratio 1.71 % 07/13/20 06:57 TSH 2.420 mlU/mL (0.270-4.200) 07/13/20 06:57 Last Vital Signs Temp 97.5 F L 07/14/20 20:00 Pulse 82 07/14/20 22:00 Resp 16 07/14/20 20:00 BP 155/101 07/14/20 22:00 Pulse Ox 94 07/14/20 20:00
[2020-07-15] MEDS: DIVALPROEX DR 125 MG TAB PO SCH ×3 (08:30→22:12)
[2020-07-15] MEDS: ZIPRASIDONE 20 MG CAP PO SCH ×2 (10:31→22:15)
[2020-07-15] MEDS ORDERED: hydrALAZINE 10 MG TAB PO PRN (21:30)
[2020-07-15] MEDS: MIRTAZAPINE 15 MG TAB PO SCH (22:13)
[2020-07-15] MEDS: traZODone 50 MG TAB PO SCH (22:15)
[2020-07-15] MEDS: hydroCHLOROthiazide 25 MG TAB PO SCH (22:16)
[2020-07-15] MEDS: LISINOPRIL 5 MG TAB PO SCH (22:17)
--- NOTE | 2020-07-16 08:44 | Progress Note ---
Subjective Date of service: 07/16/20 Principal diagnosis: (1) Schizophrenia Subjective Comment: Psych Nurse: Pt met in the hallway pacing back and forth and restless. When asked how he is doing, pt answered that he is doing well. Denies pain, SI or HI. Lump noted to the forehead. No acute distress observed and none reported. Will continue to monitor. Psych Patient seen this a.m., patient reports when he will be going home, patient stated because he is doing okay, reports taking his medication Reason for continued acute inpatient psychiatric hospitalization: Improving sleep, occasional compliance and increased cooperativity MENTAL STATUS EXAMINATION General Appearance and Behavior: Age appropriate, good hygiene, not wearing appropriate clothes, good eye contact, cooperative polite with questioning. Cooperation: Participating/engaged Psychomotor Behavior: Psychomotor agitation Mood: Good Affect and affective range: euthymic Thought Process:Circumstantial, Thought Content: internal stimulus otherwise normal Speech: pressured, loud volume at times Intellectual Functioning: Average Suicidal Ideation: Denies SI Homicidal Ideation: Denies HIl Impulse Control: Impaired Insight and Judgment: Limited insight and judgment Memory: Normal, Attention: Divided attention impaired Orientation: Alert, oriented, Assessment (1) Schizophrenia Treatment Plan Improving slee Patient admitted for inpatient psychiatric evaluation, medication adjustment and close monitoring The patient's behavior, mood, sleep and appetite will be closely monitored. Patient enrolled in individual and group therapeutic sessions and encouraged to attend. Patient provided with a safe and structured environment. Patient's physical health needs will be addressed by the Hospitalist. Hospitalist Consulted Labs including CBC, CMP, Lipid profile and Hemoglobin A1C levels ordered for baseline reference Social Assessment will be completed and the [employer]rinker will work with patient and family to ensure a suitable and safe disposition Medication adjustment will be made as clinically indicated Continue current medication We will start patient on clonidine for restless motion Usual Wellness Mu-Ism/Preservation: - Start Trazodone 50 mg po QHS & 50 mg po QHS PRN between 10 PM & 2 AM for insomnia - Start Melatonin 5 mg po QHS to promote circadian rhythm - Start [place]-3 for brain health, reduce impulsivity, and as adjunctive treatment for mood disorder, continue upon discharge given overall benefits. - Start B1 prophylaxis with 200 mg po for 5 days The patient agreed on the treatment plan, understood the risk, benefit, alternative treatment, potential consequence of no treatment, and gave informed consent. Estimated days: 7 Post hospital care: primary care provider, psychiatric provider This certifies that Freddy Sosa will be treated for the symptoms of psychosis, disorganized thoughts and aggression. Case staffed with Dr. Hurtado Medications and Allergies Allergies Allergy/AdvReac Type Severity Reaction Status Date / Time No Known Allergies Allergy Verified 07/11/20 11:24 Home Medications Medication Instructions Recorded Confirmed Last Taken Type Lisinopril [Zestril] 5 mg PO QDAY 07/13/20 07/13/20 07/12/20 10:00 History hydroCHLOROthiazide [HCTZ] 25 mg PO QDAY 07/13/20 07/13/20 07/12/20 10:00 History risperiDONE [RisperDAL] 0.5 mg PO BID 07/13/20 07/13/20 07/12/20 15:00 History traZODone [Desyrel] 50 mg PO QHS 07/13/20 07/13/20 07/12/20 22:00 History Active Meds: Active Medications Acetaminophen (Acetaminophen 325 Mg Tab) 650 mg PO Q6H PRN PRN Reason: Pain, Mild (1-3) Last Admin: 07/14/20 01:21 Dose: 650 mg Documented by: Divalproex Sodium (Divalproex Dr 125 Mg Tab) 250 mg PO TID [facility] Last Admin: 07/15/20 22:12 Dose: 250 mg Documented by: Haloperidol Lactate (Haloperidol Lactate 5 Mg/1 Ml Inj) 5 mg IM Q6H PRN PRN Reason: Agitation Hydralazine HCl (Hydralazine 10 Mg Tab) 5 mg PO Q4H PRN PRN Reason: Hypertension Hydrochlorothiazide (Hydrochlorothiazide 25 Mg Tab) 25 mg PO QDAY COUNT [facility]CLUDES [facility] Last Admin: 07/15/20 22:16 Dose: 25 mg Documented by: Lisinopril (Lisinopril 5 Mg Tab) 5 mg PO QDAY [facility]CLUD[facility] Last Admin: 07/15/20 22:17 Dose: 5 mg Documented by: Lorazepam (Lorazepam 2 Mg/Ml Vial) 2 mg IM Q4H PRN PRN Reason: Agitation Mirtazapine (Mirtazapine 15 Mg Tab) 15 mg PO QHS [facility] Last Admin: 07/15/20 22:13 Dose: 15 mg Documented by: Ziprasidone (Ziprasidone 20 Mg Cap) 40 mg PO BID [facility] Last Admin: 07/15/20 22:15 Dose: 40 mg Documented by: Results - Results Labs/Vitals: Laboratory Last Values WBC 7.9 K/mm3 (4.5-11.0) 07/13/20 06:57 RBC 5.16 M/mm3 (3.65-5.03) H 07/13/20 06:57 Hgb 15.6 gm/dl (11.8-15.2) H 07/13/20 06:57 Hct 47.4 % (35.5-45.6) H D 07/13/20 06:57 MCV 92 fl (84-94) 07/13/20 06:57 MCH 30 pg (28-32) 07/13/20 06:57 MCHC 33 % (32-34) 07/13/20 06:57 RDW 13.1 % (13.2-15.2) L 07/13/20 06:57 Plt Count 203 K/mm3 (140-440) 07/13/20 06:57 Lymph % (Auto) 21.1 % (13.4-35.0) 07/13/20 06:57 [place] % (Auto) 5.3 % (0.0-7.3) 07/13/20 06:57 Eos % (Auto) 1.1 % (0.0-4.3) 07/13/20 06:57 Baso % (Auto) 0.4 % (0.0-1.8) 07/13/20 06:57 Lymph # (Auto) 1.7 K/mm3 (1.2-5.4) 07/13/20 06:57 [place] # (Auto) 0.4 K/mm3 (0.0-0.8) 07/13/20 06:57 Eos # (Auto) 0.1 K/mm3 (0.0-0.4) 07/13/20 06:57 Baso # (Auto) 0.0 K/mm3 (0.0-0.1) 07/13/20 06:57 Seg Neutrophils % 72.1 % (40.0-70.0) H 07/13/20 06:57 Seg Neutrophils # 5.7 K/mm3 (1.8-7.7) 07/13/20 06:57 Sodium 138 mmol/L (137-145) 07/13/20 06:57 Potassium 3.4 mmol/L (3.6-5.0) L 07/13/20 06:57 Chloride 97.7 mmol/L (98-107) L 07/13/20 06:57 Carbon Dioxide 30 mmol/L (22-30) 07/13/20 06:57 Anion Gap 14 mmol/L 07/13/20 06:57 BUN 14 mg/dL (9-20) 07/13/20 06:57 Creatinine 1.1 mg/dL (0.8-1.3) 07/13/20 06:57 Estimated GFR > 60 ml/min 07/13/20 06:57 BUN/Creatinine Ratio 13 % 07/13/20 06:57 Glucose 100 mg/dL (75-100) 07/13/20 06:57 POC Glucose 93 mg/dL (70-105) 07/15/20 06:46 Hemoglobin A1c 5.5 % (4-6) 07/13/20 06:57 Calcium 10.2 mg/dL (8.4-10.2) 07/13/20 06:57 Total Bilirubin 0.70 mg/dL (0.1-1.2) 07/13/20 06:57 AST 22 units/L (5-40) 07/13/20 06:57 ALT 15 units/L (7-56) 07/13/20 06:57 Alkaline Phosphatase 86 units/L (35-129) 07/13/20 06:57 Total Protein 7.6 g/dL (6.3-8.2) 07/13/20 06:57 Albumin 4.6 g/dL (3.9-5) 07/13/20 06:57 Albumin/Globulin Ratio 1.5 % 07/13/20 06:57 Triglycerides 69 mg/dL (2-149) 07/13/20 06:57 Cholesterol 113 mg/dL (50-199) 07/13/20 06:57 LDL Cholesterol Direct 44 mg/dL (50-130) L 07/13/20 06:57 HDL Cholesterol 66 mg/dL (40-59) H 07/13/20 06:57 Cholesterol/HDL Ratio 1.71 % 07/13/20 06:57 TSH 2.420 mlU/mL (0.270-4.200) 07/13/20 06:57 Last Vital Signs Temp 98.4 F 07/15/20 20:42 Pulse 94 H 07/15/20 22:17 Resp 20 07/15/20 20:42 BP 185/115 07/15/20 22:17 Pulse Ox 99 07/15/20 20:42
[2020-07-16] MEDS: DIVALPROEX DR 125 MG TAB PO SCH ×3 (08:46→22:23)
[2020-07-16] MEDS: LISINOPRIL 5 MG TAB PO SCH (09:46)
[2020-07-16] MEDS: ZIPRASIDONE 20 MG CAP PO SCH ×2 (09:46→22:23)
[2020-07-16] MEDS: hydroCHLOROthiazide 25 MG TAB PO SCH (09:46)
[2020-07-16] MEDS: cloNIDine 0.1 MG TAB PO SCH (10:32)
[2020-07-16] MEDS: MIRTAZAPINE 15 MG TAB PO SCH (22:24)
--- NOTE | 2020-07-17 07:45 | Progress Note ---
Subjective Date of service: 07/17/20 Principal diagnosis: (1) Schizophrenia Subjective Comment: Psych Nurse: Last evening the patient went from his room to the activity room. He still paces in the hallway at times but it is not as fast as previously. Staff did not observe the patient talking to himself this evening. He denies si/hi/ah/vh. He is medication compliant. Will continue to monitor patient for safety. Psych Patient seen in room, enjoying his meal, mumbling words, but care compliant and easily redirectable. Reason for continued acute inpatient psychiatric hospitalization: Improving sleep, occasional compliance and increased cooperativity MENTAL STATUS EXAMINATION General Appearance and Behavior: Age appropriate, good hygiene, not wearing appropriate clothes, good eye contact, cooperative polite with questioning. Cooperation: Participating/engaged Psychomotor Behavior: Psychomotor agitation Mood: Good Affect and affective range: euthymic Thought Process:Circumstantial, Thought Content: internal stimulus otherwise normal Speech: pressured, loud volume at times Intellectual Functioning: Average Suicidal Ideation: Denies SI Homicidal Ideation: Denies HIl Impulse Control: Impaired Insight and Judgment: Limited insight and judgment Memory: Normal, Attention: Divided attention impaired Orientation: Alert, oriented, Assessment (1) Schizophrenia Treatment Plan Improving sleep with recent medication changes. Clonidine seems to be effective in controlling pts resltessness. Patient admitted for inpatient psychiatric evaluation, medication adjustment and close monitoring The patient's behavior, mood, sleep and appetite will be closely monitored. Patient enrolled in individual and group therapeutic sessions and encouraged to attend. Patient provided with a safe and structured environment. Patient's physical health needs will be addressed by the Hospitalist. Hospitalist Consulted Labs including CBC, CMP, Lipid profile and Hemoglobin A1C levels ordered for baseline reference Social Assessment will be completed and the Academic Associate will work with patient and family to ensure a suitable and safe disposition Medication adjustment will be made as clinically indicated Continue current medication We will start patient on clonidine for restless motion Usual Wellness Tenriism/Preservation: - Start Trazodone 50 mg po QHS & 50 mg po QHS PRN between 10 PM & 2 AM for insomnia - Start Melatonin 5 mg po QHS to promote circadian rhythm - Start [place]-3 for brain health, reduce impulsivity, and as adjunctive treatment for mood disorder, continue upon discharge given overall benefits. - Start B1 prophylaxis with 200 mg po for 5 days The patient agreed on the treatment plan, understood the risk, benefit, alternative treatment, potential consequence of no treatment, and gave informed consent. Estimated days: 7 Post hospital care: primary care provider, psychiatric provider This certifies that Freddy Sosa will be treated for the symptoms of psychosis, disorganized thoughts and aggression. Case staffed with Dr. Hurtado Medications and Allergies Allergies Allergy/AdvReac Type Severity Reaction Status Date / Time No Known Allergies Allergy Verified 07/11/20 11:24 Home Medications Medication Instructions Recorded Confirmed Last Taken Type Lisinopril [Zestril] 5 mg PO QDAY 07/13/20 07/13/20 07/12/20 10:00 History hydroCHLOROthiazide [HCTZ] 25 mg PO QDAY 07/13/20 07/13/20 07/12/20 10:00 History risperiDONE [RisperDAL] 0.5 mg PO BID 07/13/20 07/13/20 07/12/20 15:00 History traZODone [Desyrel] 50 mg PO QHS 07/13/20 07/13/20 07/12/20 22:00 History Active Meds: Active Medications Acetaminophen (Acetaminophen 325 Mg Tab) 650 mg PO Q6H PRN PRN Reason: Pain, Mild (1-3) Last Admin: 07/14/20 01:21 Dose: 650 mg Documented by: Clonidine HCl (Clonidine 0.1 Mg Tab) 0.1 mg PO QDAY [facility] Last Admin: 07/16/20 10:32 Dose: 0.1 mg Documented by: Divalproex Sodium (Divalproex Dr 125 Mg Tab) 250 mg PO TID [facility] Last Admin: 07/16/20 22:23 Dose: 250 mg Documented by: Haloperidol Lactate (Haloperidol Lactate 5 Mg/1 Ml Inj) 5 mg IM Q6H PRN PRN Reason: Agitation Hydralazine HCl (Hydralazine 10 Mg Tab) 5 mg PO Q4H PRN PRN Reason: Hypertension Hydrochlorothiazide (Hydrochlorothiazide 25 Mg Tab) 25 mg PO QDAY [facility] Last Admin: 07/16/20 09:46 Dose: 25 mg Documented by: Lisinopril (Lisinopril 5 Mg Tab) 5 mg PO QDAY [facility] Last Admin: 07/16/20 09:46 Dose: 5 mg Documented by: Lorazepam (Lorazepam 2 Mg/Ml Vial) 2 mg IM Q4H PRN PRN Reason: Agitation Mirtazapine (Mirtazapine 15 Mg Tab) 15 mg PO QHS [facility] Last Admin: 07/16/20 22:24 Dose: 15 mg Documented by: Ziprasidone (Ziprasidone 20 Mg Cap) 40 mg PO BID [facility] Last Admin: 07/16/20 22:23 Dose: 40 mg Documented by: Results - Results Labs/Vitals: Laboratory Last Values WBC 7.9 K/mm3 (4.5-11.0) 07/13/20 06:57 RBC 5.16 M/mm3 (3.65-5.03) H 07/13/20 06:57 Hgb 15.6 gm/dl (11.8-15.2) H 07/13/20 06:57 Hct 47.4 % (35.5-45.6) H D 07/13/20 06:57 MCV 92 fl (84-94) 07/13/20 06:57 MCH 30 pg (28-32) 07/13/20 06:57 MCHC 33 % (32-34) 07/13/20 06:57 RDW 13.1 % (13.2-15.2) L 07/13/20 06:57 Plt Count 203 K/mm3 (140-440) 07/13/20 06:57 Lymph % (Auto) 21.1 % (13.4-35.0) 07/13/20 06:57 [place] % (Auto) 5.3 % (0.0-7.3) 07/13/20 06:57 Eos % (Auto) 1.1 % (0.0-4.3) 07/13/20 06:57 Baso % (Auto) 0.4 % (0.0-1.8) 07/13/20 06:57 Lymph # (Auto) 1.7 K/mm3 (1.2-5.4) 07/13/20 06:57 [place] # (Auto) 0.4 K/mm3 (0.0-0.8) 07/13/20 06:57 Eos # (Auto) 0.1 K/mm3 (0.0-0.4) 07/13/20 06:57 Baso # (Auto) 0.0 K/mm3 (0.0-0.1) 07/13/20 06:57 Seg Neutrophils % 72.1 % (40.0-70.0) H 07/13/20 06:57 Seg Neutrophils # 5.7 K/mm3 (1.8-7.7) 07/13/20 06:57 Sodium 138 mmol/L (137-145) 07/13/20 06:57 Potassium 3.4 mmol/L (3.6-5.0) L 07/13/20 06:57 Chloride 97.7 mmol/L (98-107) L 07/13/20 06:57 Carbon Dioxide 30 mmol/L (22-30) 07/13/20 06:57 Anion Gap 14 mmol/L 07/13/20 06:57 BUN 14 mg/dL (9-20) 07/13/20 06:57 Creatinine 1.1 mg/dL (0.8-1.3) 07/13/20 06:57 Estimated GFR > 60 ml/min 07/13/20 06:57 BUN/Creatinine Ratio 13 % 07/13/20 06:57 Glucose 100 mg/dL (75-100) 07/13/20 06:57 POC Glucose 76 mg/dL (70-105) 07/16/20 06:24 Hemoglobin A1c 5.5 % (4-6) 07/13/20 06:57 Calcium 10.2 mg/dL (8.4-10.2) 07/13/20 06:57 Total Bilirubin 0.70 mg/dL (0.1-1.2) 07/13/20 06:57 AST 22 units/L (5-40) 07/13/20 06:57 ALT 15 units/L (7-56) 07/13/20 06:57 Alkaline Phosphatase 86 units/L (35-129) 07/13/20 06:57 Total Protein 7.6 g/dL (6.3-8.2) 07/13/20 06:57 Albumin 4.6 g/dL (3.9-5) 07/13/20 06:57 Albumin/Globulin Ratio 1.5 % 07/13/20 06:57 Triglycerides 69 mg/dL (2-149) 07/13/20 06:57 Cholesterol 113 mg/dL (50-199) 07/13/20 06:57 LDL Cholesterol Direct 44 mg/dL (50-130) L 07/13/20 06:57 HDL Cholesterol 66 mg/dL (40-59) H 07/13/20 06:57 Cholesterol/HDL Ratio 1.71 % 07/13/20 06:57 TSH 2.420 mlU/mL (0.270-4.200) 07/13/20 06:57 Last Vital Signs Temp 99.0 F 07/16/20 19:53 Pulse 89 07/16/20 19:53 Resp 20 07/16/20 19:53 BP 140/92 07/16/20 19:53 Pulse Ox 98 07/16/20 19:53
[2020-07-17] MEDS: DIVALPROEX DR 125 MG TAB PO SCH ×3 (09:23→21:06)
[2020-07-17] MEDS: cloNIDine 0.1 MG TAB PO SCH (10:21)
[2020-07-17] MEDS: hydroCHLOROthiazide 25 MG TAB PO SCH (10:22)
[2020-07-17] MEDS: LISINOPRIL 5 MG TAB PO SCH (10:22)
[2020-07-17] MEDS: ZIPRASIDONE 20 MG CAP PO SCH ×2 (10:23→21:05)
[2020-07-17] MEDS: MIRTAZAPINE 15 MG TAB PO SCH (21:06)
--- NOTE | 2020-07-18 07:47 | Progress Note ---
Subjective Date of service: 07/18/20 Principal diagnosis: (1) Schizophrenia Subjective Comment: Psych Nurse: pt spent the evening pacing back and forth from hallway and activity room responding to internal stimuli, pt was observed talking and laughing to himself loudly, disorganized, poor hygiene, good appetite, pt is medication compliant, no distress noted, will continue to monitor for safety. Psych Patient presents as extremley agitated this morning, making threatening verbal comments at staff. Says "i odnt give a fuck", " I will fuck you up" , "If you mess with me, I will kill you" Reason for continued acute inpatient psychiatric hospitalization: Threatening behavior, homicidal threats, medication changes and deparkote levels to be checked. MENTAL STATUS EXAMINATION General Appearance and Behavior: Age appropriate, good hygiene, not wearing appropriate clothes, good eye contact, cooperative polite with questioning. Cooperation: Participating/engaged Psychomotor Behavior: Psychomotor agitation Mood: Good Affect and affective range: euthymic Thought Process:Circumstantial, Thought Content: internal stimulus otherwise normal Speech: pressured, loud volume at times Intellectual Functioning: Average Suicidal Ideation: Denies SI Homicidal Ideation: Denies HIl Impulse Control: Impaired Insight and Judgment: Limited insight and judgment Memory: Normal, Attention: Divided attention impaired Orientation: Alert, oriented, Assessment (1) Schizophrenia Treatment Plan Improving sleep with recent medication changes. Clonidine seems to be effective in controlling pts resltessness. Patient admitted for inpatient psychiatric evaluation, medication adjustment and close monitoring The patient's behavior, mood, sleep and appetite will be closely monitored. Patient enrolled in individual and group therapeutic sessions and encouraged to attend. Patient provided with a safe and structured environment. Patient's physical health needs will be addressed by the Hospitalist. Hospitalist Consulted Labs including CBC, CMP, Lipid profile and Hemoglobin A1C levels ordered for baseline reference Social Assessment will be completed and the Lifter will work with patient and family to ensure a suitable and safe disposition Medication adjustment will be made as clinically indicated Continue current medication We will start patient on clonidine for restless motion Usual Wellness Voodoo/Preservation: - Start Trazodone 50 mg po QHS & 50 mg po QHS PRN between 10 PM & 2 AM for insomnia - Start Melatonin 5 mg po QHS to promote circadian rhythm - Start [place]-3 for brain health, reduce impulsivity, and as adjunctive treatment for mood disorder, continue upon discharge given overall benefits. - Start B1 prophylaxis with 200 mg po for 5 days The patient agreed on the treatment plan, understood the risk, benefit, alternative treatment, potential consequence of no treatment, and gave informed consent. Estimated days: 7 Post hospital care: primary care provider, psychiatric provider This certifies that Freddy Sosa will be treated for the symptoms of psychosis, disorganized thoughts and aggression. Case staffed with Dr. Hurtado Medications and Allergies Allergies Allergy/AdvReac Type Severity Reaction Status Date / Time No Known Allergies Allergy Verified 07/11/20 11:24 Home Medications Medication Instructions Recorded Confirmed Last Taken Type Lisinopril [Zestril] 5 mg PO QDAY 07/13/20 07/13/20 07/12/20 10:00 History hydroCHLOROthiazide [HCTZ] 25 mg PO QDAY 07/13/20 07/13/20 07/12/20 10:00 History risperiDONE [RisperDAL] 0.5 mg PO BID 07/13/20 07/13/20 07/12/20 15:00 History traZODone [Desyrel] 50 mg PO QHS 07/13/20 07/13/20 07/12/20 22:00 History Active Meds: Active Medications Acetaminophen (Acetaminophen 325 Mg Tab) 650 mg PO Q6H PRN PRN Reason: Pain, Mild (1-3) Last Admin: 07/14/20 01:21 Dose: 650 mg Documented by: Clonidine HCl (Clonidine 0.1 Mg Tab) 0.1 mg PO QDAY [facility] Last Admin: 07/17/20 10:21 Dose: 0.1 mg Documented by: Divalproex Sodium (Divalproex Dr 125 Mg Tab) 250 mg PO TID [facility] Last Admin: 07/17/20 21:06 Dose: 250 mg Documented by: Haloperidol Lactate (Haloperidol Lactate 5 Mg/1 Ml Inj) 5 mg IM Q6H PRN PRN Reason: Agitation Hydralazine HCl (Hydralazine 10 Mg Tab) 5 mg PO Q4H PRN PRN Reason: Hypertension Hydrochlorothiazide (Hydrochlorothiazide 25 Mg Tab) 25 mg PO QDAY [facility] Last Admin: 07/17/20 10:22 Dose: 25 mg Documented by: Lisinopril (Lisinopril 5 Mg Tab) 5 mg PO QDAY [facility] Last Admin: 07/17/20 10:22 Dose: 5 mg Documented by: Lorazepam (Lorazepam 2 Mg/Ml Vial) 2 mg IM Q4H PRN PRN Reason: Agitation Mirtazapine (Mirtazapine 15 Mg Tab) 15 mg PO QHS [facility] Last Admin: 07/17/20 21:06 Dose: 15 mg Documented by: Ziprasidone (Ziprasidone 20 Mg Cap) 40 mg PO BID [facility] Last Admin: 07/17/20 21:05 Dose: 40 mg Documented by: Results - Results Labs/Vitals: Laboratory Last Values WBC 7.9 K/mm3 (4.5-11.0) 07/13/20 06:57 RBC 5.16 M/mm3 (3.65-5.03) H 07/13/20 06:57 Hgb 15.6 gm/dl (11.8-15.2) H 07/13/20 06:57 Hct 47.4 % (35.5-45.6) H D 07/13/20 06:57 MCV 92 fl (84-94) 07/13/20 06:57 MCH 30 pg (28-32) 07/13/20 06:57 MCHC 33 % (32-34) 07/13/20 06:57 RDW 13.1 % (13.2-15.2) L 07/13/20 06:57 Plt Count 203 K/mm3 (140-440) 07/13/20 06:57 Lymph % (Auto) 21.1 % (13.4-35.0) 07/13/20 06:57 [place] % (Auto) 5.3 % (0.0-7.3) 07/13/20 06:57 Eos % (Auto) 1.1 % (0.0-4.3) 07/13/20 06:57 Baso % (Auto) 0.4 % (0.0-1.8) 07/13/20 06:57 Lymph # (Auto) 1.7 K/mm3 (1.2-5.4) 07/13/20 06:57 [place] # (Auto) 0.4 K/mm3 (0.0-0.8) 07/13/20 06:57 Eos # (Auto) 0.1 K/mm3 (0.0-0.4) 07/13/20 06:57 Baso # (Auto) 0.0 K/mm3 (0.0-0.1) 07/13/20 06:57 Seg Neutrophils % 72.1 % (40.0-70.0) H 07/13/20 06:57 Seg Neutrophils # 5.7 K/mm3 (1.8-7.7) 07/13/20 06:57 Sodium 138 mmol/L (137-145) 07/13/20 06:57 Potassium 3.4 mmol/L (3.6-5.0) L 07/13/20 06:57 Chloride 97.7 mmol/L (98-107) L 07/13/20 06:57 Carbon Dioxide 30 mmol/L (22-30) 07/13/20 06:57 Anion Gap 14 mmol/L 07/13/20 06:57 BUN 14 mg/dL (9-20) 07/13/20 06:57 Creatinine 1.1 mg/dL (0.8-1.3) 07/13/20 06:57 Estimated GFR > 60 ml/min 07/13/20 06:57 BUN/Creatinine Ratio 13 % 07/13/20 06:57 Glucose 100 mg/dL (75-100) 07/13/20 06:57 POC Glucose 92 mg/dL (70-105) 07/18/20 06:42 Hemoglobin A1c 5.5 % (4-6) 07/13/20 06:57 Calcium 10.2 mg/dL (8.4-10.2) 07/13/20 06:57 Total Bilirubin 0.70 mg/dL (0.1-1.2) 07/13/20 06:57 AST 22 units/L (5-40) 07/13/20 06:57 ALT 15 units/L (7-56) 07/13/20 06:57 Alkaline Phosphatase 86 units/L (35-129) 07/13/20 06:57 Total Protein 7.6 g/dL (6.3-8.2) 07/13/20 06:57 Albumin 4.6 g/dL (3.9-5) 07/13/20 06:57 Albumin/Globulin Ratio 1.5 % 07/13/20 06:57 Triglycerides 69 mg/dL (2-149) 07/13/20 06:57 Cholesterol 113 mg/dL (50-199) 07/13/20 06:57 LDL Cholesterol Direct 44 mg/dL (50-130) L 07/13/20 06:57 HDL Cholesterol 66 mg/dL (40-59) H 07/13/20 06:57 Cholesterol/HDL Ratio 1.71 % 07/13/20 06:57 TSH 2.420 mlU/mL (0.270-4.200) 07/13/20 06:57 Last Vital Signs Temp 98.8 F 07/17/20 22:00 Pulse 88 07/17/20 22:00 Resp 15 07/17/20 22:00 BP 145/89 07/17/20 22:00 Pulse Ox 95 07/17/20 22:00
[2020-07-18] MEDS: DIVALPROEX DR 125 MG TAB PO SCH (08:50)
[2020-07-18] MEDS: cloNIDine 0.1 MG TAB PO SCH (09:45)
[2020-07-18] MEDS: ZIPRASIDONE 20 MG CAP PO SCH (09:45)
[2020-07-18] MEDS: hydroCHLOROthiazide 25 MG TAB PO SCH (09:45)
[2020-07-18] MEDS: LISINOPRIL 5 MG TAB PO SCH (09:46)
[2020-07-18] MEDS ORDERED: DIVALPROEX DR 125 MG TAB PO SCH (12:20)
[2020-07-18] MEDS ORDERED: cloNIDine 0.1 MG TAB PO ONE (13:00)
[2020-07-18] MEDS: DIVALPROEX DR 500 MG TAB PO SCH ×2 (13:39→22:18)
[2020-07-18] MEDS ORDERED: ZIPRASIDONE 20 MG CAP PO SCH (22:00)
[2020-07-18] MEDS: MIRTAZAPINE 15 MG TAB PO SCH (22:19)
--- NOTE | 2020-07-19 07:43 | Progress Note ---
Subjective Date of service: 07/19/20 Principal diagnosis: (1) Schizophrenia Subjective Comment: Psych Nurse: 1850 Pt. continue to responds to internal stimuli, he talks to himself, he paces back and forth sometimes in the hallway. He is compliant with meds, appetite and stayed in his room most of the afternoon and slept for about 3hrs. Denies any pain, no acute distress noted and no threatening behavior. Will continue to monitor. Psych Patient seen this AM, continued repeated motor tics and verbal tics which appears to be baseline for patient due to tic disorder concerning for tourette syndrome. Patient states that he is doing okay, has been medication compliant and cooperative with care. Reason for continued acute inpatient psychiatric hospitalization: Threatening behavior, homicidal threats, medication changes and deparkote levels to be checked. MENTAL STATUS EXAMINATION General Appearance and Behavior: Age appropriate, good hygiene, not wearing appropriate clothes, good eye contact, cooperative polite with questioning. Cooperation: Participating/engaged Psychomotor Behavior: increased Psychomotor activity Mood: Good Affect and affective range: euthymic Thought Process:Circumstantial, Thought Content: internal stimulus otherwise normal Speech: pressured, loud volume at times Intellectual Functioning: Average Suicidal Ideation: Denies SI Homicidal Ideation: Denies HIl Impulse Control: Impaired Insight and Judgment: Limited insight and judgment Memory: Normal, Attention: Divided attention impaired Orientation: Alert, oriented, Assessment (1) Schizophrenia Treatment Plan Risperidone started, Geodon discontinued Continued current medications. Patient admitted for inpatient psychiatric evaluation, medication adjustment and close monitoring The patient's behavior, mood, sleep and appetite will be closely monitored. Patient enrolled in individual and group therapeutic sessions and encouraged to attend. Patient provided with a safe and structured environment. Patient's physical health needs will be addressed by the Hospitalist. Hospitalist Consulted Labs including CBC, CMP, Lipid profile and Hemoglobin A1C levels ordered for baseline reference Social Assessment will be completed and the Trust Clerk will work with patient and family to ensure a suitable and safe disposition Medication adjustment will be made as clinically indicated Continue current medication We will start patient on clonidine for restless motion Usual Wellness Restorationist/Preservation: - Start Trazodone 50 mg po QHS & 50 mg po QHS PRN between 10 PM & 2 AM for insomnia - Start Melatonin 5 mg po QHS to promote circadian rhythm - Start [place]-3 for brain health, reduce impulsivity, and as adjunctive treatment for mood disorder, continue upon discharge given overall benefits. - Start B1 prophylaxis with 200 mg po for 5 days The patient agreed on the treatment plan, understood the risk, benefit, alternative treatment, potential consequence of no treatment, and gave informed consent. Estimated days: 7 Post hospital care: primary care provider, psychiatric provider This certifies that Freddy Sosa will be treated for the symptoms of psychosis, disorganized thoughts and aggression. Case staffed with Dr. Hurtaod Medications and Allergies Allergies Allergy/AdvReac Type Severity Reaction Status Date / Time No Known Allergies Allergy Verified 07/11/20 11:24 Home Medications Medication Instructions Recorded Confirmed Last Taken Type Lisinopril [Zestril] 5 mg PO QDAY 07/13/20 07/13/20 07/12/20 10:00 History hydroCHLOROthiazide [HCTZ] 25 mg PO QDAY 07/13/20 07/13/20 07/12/20 10:00 Histo ry risperiDONE [RisperDAL] 0.5 mg PO BID 07/13/20 07/13/20 07/12/20 15:00 History traZODone [Desyrel] 50 mg PO QHS 07/13/20 07/13/20 07/12/20 22:00 History Active Meds: Active Medications Acetaminophen (Acetaminophen 325 Mg Tab) 650 mg PO Q6H PRN PRN Reason: Pain, Mild (1-3) Last Admin: 07/14/20 01:21 Dose: 650 mg Documented by: Clonidine HCl (Clonidine 0.1 Mg Tab) 0.2 mg PO QDAY [facility] Divalproex Sodium (Divalproex Dr 500 Mg Tab) 500 mg PO TID [facility] Last Admin: 07/18/20 22:18 Dose: 500 mg Documented by: Haloperidol Lactate (Haloperidol Lactate 5 Mg/1 Ml Inj) 5 mg IM Q6H PRN PRN Reason: Agitation Hydralazine HCl (Hydralazine 10 Mg Tab) 5 mg PO Q4H PRN PRN Reason: Hypertension Hydrochlorothiazide (Hydrochlorothiazide 25 Mg Tab) 25 mg PO QDAY [facility] Last Admin: 07/18/20 09:45 Dose: 25 mg Documented by: Lisinopril (Lisinopril 5 Mg Tab) 5 mg PO QDAY [facility] Last Admin: 07/18/20 09:46 Dose: 5 mg Documented by: Lorazepam (Lorazepam 2 Mg/Ml Vial) 2 mg IM Q4H PRN PRN Reason: Agitation Mirtazapine (Mirtazapine 15 Mg Tab) 15 mg PO QHS [facility] Last Admin: 07/18/20 22:19 Dose: 15 mg Documented by: Ziprasidone (Ziprasidone 20 Mg Cap) 60 mg PO BID [facility] Last Admin: 07/18/20 22:19 Dose: 60 mg Documented by: Results - Results Labs/Vitals: Laboratory Last Values WBC 7.9 K/mm3 (4.5-11.0) 07/13/20 06:57 RBC 5.16 M/mm3 (3.65-5.03) H 07/13/20 06:57 Hgb 15.6 gm/dl (11.8-15.2) H 07/13/20 06:57 Hct 47.4 % (35.5-45.6) H D 07/13/20 06:57 MCV 92 fl (84-94) 07/13/20 06:57 MCH 30 pg (28-32) 07/13/20 06:57 MCHC 33 % (32-34) 07/13/20 06:57 RDW 13.1 % (13.2-15.2) L 07/13/20 06:57 Plt Count 203 K/mm3 (140-440) 07/13/20 06:57 Lymph % (Auto) 21.1 % (13.4-35.0) 07/13/20 06:57 [place] % (Auto) 5.3 % (0.0-7.3) 07/13/20 06:57 Eos % (Auto) 1.1 % (0.0-4.3) 07/13/20 06:57 Baso % (Auto) 0.4 % (0.0-1.8) 07/13/20 06:57 Lymph # (Auto) 1.7 K/mm3 (1.2-5.4) 07/13/20 06:57 [place] # (Auto) 0.4 K/mm3 (0.0-0.8) 07/13/20 06:57 Eos # (Auto) 0.1 K/mm3 (0.0-0.4) 07/13/20 06:57 Baso # (Auto) 0.0 K/mm3 (0.0-0.1) 07/13/20 06:57 Seg Neutrophils % 72.1 % (40.0-70.0) H 07/13/20 06:57 Seg Neutrophils # 5.7 K/mm3 (1.8-7.7) 07/13/20 06:57 Sodium 138 mmol/L (137-145) 07/13/20 06:57 Potassium 3.4 mmol/L (3.6-5.0) L 07/13/20 06:57 Chloride 97.7 mmol/L (98-107) L 07/13/20 06:57 Carbon Dioxide 30 mmol/L (22-30) 07/13/20 06:57 Anion Gap 14 mmol/L 07/13/20 06:57 BUN 14 mg/dL (9-20) 07/13/20 06:57 Creatinine 1.1 mg/dL (0.8-1.3) 07/13/20 06:57 Estimated GFR > 60 ml/min 07/13/20 06:57 BUN/Creatinine Ratio 13 % 07/13/20 06:57 Glucose 100 mg/dL (75-100) 07/13/20 06:57 POC Glucose 94 mg/dL (70-105) 07/19/20 07:24 Hemoglobin A1c 5.5 % (4-6) 07/13/20 06:57 Calcium 10.2 mg/dL (8.4-10.2) 07/13/20 06:57 Total Bilirubin 0.70 mg/dL (0.1-1.2) 07/13/20 06:57 AST 22 units/L (5-40) 07/13/20 06:57 ALT 15 units/L (7-56) 07/13/20 06:57 Alkaline Phosphatase 86 units/L (35-129) 07/13/20 06:57 Total Protein 7.6 g/dL (6.3-8.2) 07/13/20 06:57 Albumin 4.6 g/dL (3.9-5) 07/13/20 06:57 Albumin/Globulin Ratio 1.5 % 07/13/20 06:57 Triglycerides 69 mg/dL (2-149) 07/13/20 06:57 Cholesterol 113 mg/dL (50-199) 07/13/20 06:57 LDL Cholesterol Direct 44 mg/dL (50-130) L 07/13/20 06:57 HDL Cholesterol 66 mg/dL (40-59) H 07/13/20 06:57 Cholesterol/HDL Ratio 1.71 % 07/13/20 06:57 TSH 2.420 mlU/mL (0.270-4.200) 07/13/20 06:57 Valproic Acid 70.1 ug/mL (50-100) 07/18/20 13:53 Last Vital Signs Temp 98.0 F 07/18/20 22:58 Pulse 121 H 07/18/20 19:49 Resp 20 07/18/20 19:49 BP 137/94 07/18/20 19:49 Pulse Ox 98 07/18/20 22:59
[2020-07-19] MEDS: LISINOPRIL 5 MG TAB PO SCH (09:04)
[2020-07-19] MEDS: risperiDONE 1 MG TAB PO SCH ×2 (09:04→22:13)
[2020-07-19] MEDS: hydroCHLOROthiazide 25 MG TAB PO SCH (09:04)
[2020-07-19] MEDS: cloNIDine 0.1 MG TAB PO SCH (09:04)
[2020-07-19] MEDS: DIVALPROEX DR 500 MG TAB PO SCH ×3 (09:05→22:14)
[2020-07-19] MEDS ORDERED: risperiDONE 0.25 MG TAB PO SCH (10:00)
[2020-07-19] MEDS: MIRTAZAPINE 15 MG TAB PO SCH (22:14)
[2020-07-19] MEDS: ACETAMINOPHEN 325 MG TAB PO PRN (23:53)
--- NOTE | 2020-07-20 07:13 | Progress Note ---
Subjective Date of service: 07/20/20 Principal diagnosis: (1) Schizophrenia Subjective Comment: Psych Nurse: Last evening the patient paced around the unit laughing and talking to himself. He denies si/hi/ah/vh. however he is observed responding to internal stimuli. He cursed out loud at times. He was medication compliant even though he made faces at the meds in the cup. Overnight the patient requested tylenol for a headache. He was holding his head with both hands. He received tylenol 650 mg and it was effective. He was then able to go to sleep. He presents as sleeping 6 hours. Will continue to monitor patient for safety. Psych Patient seen this AM, having breakfast cooperative with care, appears unbothered by questions as he enjoys meal. Patient has baseline motor and verbal tics and usually appears restless but has not been threatening. Reason for continued acute inpatient psychiatric hospitalization: Mood stable, medication compliant and easily directed. Deparkote levels therapeutic. MENTAL STATUS EXAMINATION General Appearance and Behavior: Age appropriate, good hygiene, not wearing appropriate clothes, good eye contact, cooperative polite with questioning. Cooperation: Participating/engaged Psychomotor Behavior: increased Psychomotor activity Mood: Good Affect and affective range: euthymic Thought Process:Circumstantial, Thought Content: internal stimulus otherwise normal Speech: pressured, loud volume at times Intellectual Functioning: Average Suicidal Ideation: Denies SI Homicidal Ideation: Denies HIl Impulse Control: Impaired Insight and Judgment: Limited insight and judgment Memory: Normal, Attention: Divided attention impaired Orientation: Alert, oriented, Assessment (1) Schizophrenia Treatment Plan Continued current medications. Patient admitted for inpatient psychiatric evaluation, medication adjustment and close monitoring The patient's behavior, mood, sleep and appetite will be closely monitored. Patient enrolled in individual and group therapeutic sessions and encouraged to attend. Patient provided with a safe and structured environment. Patient's physical health needs will be addressed by the Hospitalist. Hospitalist Consulted Labs including CBC, CMP, Lipid profile and Hemoglobin A1C levels ordered for baseline reference Social Assessment will be completed and the Architectural Practice Manager will work with patient and family to ensure a suitable and safe disposition Medication adjustment will be made as clinically indicated Continue current medication We will start patient on clonidine for restless motion Usual Wellness Taoist/Preservation: - Start Trazodone 50 mg po QHS & 50 mg po QHS PRN between 10 PM & 2 AM for insomnia - Start Melatonin 5 mg po QHS to promote circadian rhythm - Start [place]-3 for brain health, reduce impulsivity, and as adjunctive treatment for mood disorder, continue upon discharge given overall benefits. - Start B1 prophylaxis with 200 mg po for 5 days The patient agreed on the treatment plan, understood the risk, benefit, alternative treatment, potential consequence of no treatment, and gave informed consent. Estimated days: 7 Post hospital care: primary care provider, psychiatric provider This certifies that Freddy Sosa will be treated for the symptoms of psychosis, disorganized thoughts and aggression. Case staffed with Dr. Hurtado Medications and Allergies Allergies Allergy/AdvReac Type Severity Reaction Status Date / Time No Known Allergies Allergy Verified 07/11/20 11:24 Home Medications Medication Instructions Recorded Confirmed Last Taken Type Lisinopril [Zestril] 5 mg PO QDAY 07/13/20 07/13/20 07/12/20 10:00 History hydroCHLOROthiazide [HCTZ] 25 mg PO QDAY 07/13/20 07/13/20 07/12/20 10:00 History risperiDONE [RisperDAL] 0.5 mg PO BID 07/13/20 07/13/20 07/12/20 15:00 History traZODone [Desyrel] 50 mg PO QHS 07/13/20 07/13/20 07/12/20 22:00 History Active Meds: Active Medications Acetaminophen (Acetaminophen 325 Mg Tab) 650 mg PO Q6H PRN PRN Reason: Pain, Mild (1-3) Last Admin: 07/19/20 23:53 Dose: 650 mg Documented by: Clonidine HCl (Clonidine 0.1 Mg Tab) 0.2 mg PO QDAY [facility] Last Admin: 07/19/20 09:04 Dose: 0.2 mg Documented by: Divalproex Sodium (Divalproex Dr 500 Mg Tab) 500 mg PO TID [facility] Last Admin: 07/19/20 22:14 Dose: 500 mg Documented by: Haloperidol Lactate (Haloperidol Lactate 5 Mg/1 Ml Inj) 5 mg IM Q6H PRN PRN Reason: Agitation Hydralazine HCl (Hydralazine 10 Mg Tab) 5 mg PO Q4H PRN PRN Reason: Hypertension Hydrochlorothiazide (Hydrochlorothiazide 25 Mg Tab) 25 mg PO QDAY [facility] Last Admin: 07/19/20 09:04 Dose: 25 mg Documented by: Lisinopril (Lisinopril 5 Mg Tab) 5 mg PO QDAY [facility] Last Admin: 07/19/20 09:04 Dose: 5 mg Documented by: Lorazepam (Lorazepam 2 Mg/Ml Vial) 2 mg IM Q4H PRN PRN Reason: Agitation Mirtazapine (Mirtazapine 15 Mg Tab) 15 mg PO QHS [facility] Last Admin: 07/19/20 22:14 Dose: 15 mg Documented by: Risperidone (Risperidone 1 Mg Tab) 2 mg PO BID [facility] Last Admin: 07/19/20 22:13 Dose: 2 mg Documented by: Results - Results Labs/Vitals: Laboratory Last Values WBC 7.9 K/mm3 (4.5-11.0) 07/13/20 06:57 RBC 5.16 M/mm3 (3.65-5.03) H 07/13/20 06:57 Hgb 15.6 gm/dl (11.8-15.2) H 07/13/20 06:57 Hct 47.4 % (35.5-45.6) H D 07/13/20 06:57 MCV 92 fl (84-94) 07/13/20 06:57 MCH 30 pg (28-32) 07/13/20 06:57 MCHC 33 % (32-34) 07/13/20 06:57 RDW 13.1 % (13.2-15.2) L 07/13/20 06:57 Plt Count 203 K/mm3 (140-440) 07/13/20 06:57 Lymph % (Auto) 21.1 % (13.4-35.0) 07/13/20 06:57 [place] % (Auto) 5.3 % (0.0-7.3) 07/13/20 06:57 Eos % (Auto) 1.1 % (0.0-4.3) 07/13/20 06:57 Baso % (Auto) 0.4 % (0.0-1.8) 07/13/20 06:57 Lymph # (Auto) 1.7 K/mm3 (1.2-5.4) 07/13/20 06:57 [place] # (Auto) 0.4 K/mm3 (0.0-0.8) 07/13/20 06:57 Eos # (Auto) 0.1 K/mm3 (0.0-0.4) 07/13/20 06:57 Baso # (Auto) 0.0 K/mm3 (0.0-0.1) 07/13/20 06:57 Seg Neutrophils % 72.1 % (40.0-70.0) H 07/13/20 06:57 Seg Neutrophils # 5.7 K/mm3 (1.8-7.7) 07/13/20 06:57 Sodium 138 mmol/L (137-145) 07/13/20 06:57 Potassium 3.4 mmol/L (3.6-5.0) L 07/13/20 06:57 Chloride 97.7 mmol/L (98-107) L 07/13/20 06:57 Carbon Dioxide 30 mmol/L (22-30) 07/13/20 06:57 Anion Gap 14 mmol/L 07/13/20 06:57 BUN 14 mg/dL (9-20) 07/13/20 06:57 Creatinine 1.1 mg/dL (0.8-1.3) 07/13/20 06:57 Estimated GFR > 60 ml/min 07/13/20 06:57 BUN/Creatinine Ratio 13 % 07/13/20 06:57 Glucose 100 mg/dL (75-100) 07/13/20 06:57 POC Glucose 94 mg/dL (70-105) 07/19/20 07:24 Hemoglobin A1c 5.5 % (4-6) 07/13/20 06:57 Calcium 10.2 mg/dL (8.4-10.2) 07/13/20 06:57 Total Bilirubin 0.70 mg/dL (0.1-1.2) 07/13/20 06:57 AST 22 units/L (5-40) 07/13/20 06:57 ALT 15 units/L (7-56) 07/13/20 06:57 Alkaline Phosphatase 86 units/L (35-129) 07/13/20 06:57 Total Protein 7.6 g/dL (6.3-8.2) 07/13/20 06:57 Albumin 4.6 g/dL (3.9-5) 07/13/20 06:57 Albumin/Globulin Ratio 1.5 % 07/13/20 06:57 Triglycerides 69 mg/dL (2-149) 07/13/20 06:57 Cholesterol 113 mg/dL (50-199) 07/13/20 06:57 LDL Cholesterol Direct 44 mg/dL (50-130) L 07/13/20 06:57 HDL Cholesterol 66 mg/dL (40-59) H 07/13/20 06:57 Cholesterol/HDL Ratio 1.71 % 07/13/20 06:57 TSH 2.420 mlU/mL (0.270-4.200) 07/13/20 06:57 Valproic Acid 70.1 ug/mL (50-100) 07/18/20 13:53 Last Vital Signs Temp 99.2 F 07/19/20 20:16 Pulse 87 07/19/20 20:16 Resp 18 07/19/20 23:53 BP 144/103 07/19/20 20:16 Pulse Ox 94 07/19/20 20:16
[2020-07-20] MEDS: DIVALPROEX DR 500 MG TAB PO SCH ×3 (08:50→21:28)
[2020-07-20] MEDS: hydroCHLOROthiazide 25 MG TAB PO SCH (09:26)
[2020-07-20] MEDS: cloNIDine 0.1 MG TAB PO SCH (09:27)
[2020-07-20] MEDS: LISINOPRIL 5 MG TAB PO SCH (09:27)
[2020-07-20] MEDS: risperiDONE 1 MG TAB PO SCH ×2 (09:27→21:28)
[2020-07-20] MEDS: MIRTAZAPINE 15 MG TAB PO SCH (21:28)
--- NOTE | 2020-07-21 07:57 | Progress Note ---
Subjective Date of service: 07/21/20 Principal diagnosis: (1) Schizophrenia Subjective Comment: Per nurse note: Last evening the patient paced less and presented as calmer. He denies si/hi/ah/vh. He does talk to himself but it is calmer and softer. He is medication compliant but frowns at the pills in his cup. He was able to go to sleep earlier in the night without keeping himself awake talking. His appetite is good and has no difficulty while interacting with others. Overnight he rested quietly. He presents as sleeping 8 hours. Will continue to monitor patient for safety. The patient was seen today, he was pacing around in the schulz. He says "I need my clothes washed." He says he slept okay and feels ok. The patient denies SI/HI or hallucinations. Reason for continued inpatient treatment: Although at times, nursing staff has observed the patient talking to himself, he has improved significantly and likely at his baseline. Will discuss with social director plan for discharge to ensue patient safety and outpatient treatment to maintain mental health stability upon release. REVIEW OF SYSTEMS Constitutional: Negative for weight loss ENT: Negative for stridor Respiratory: Negative for cough or hemoptysis All other systems reviewed and are negative MENTAL STATUS EXAMINATION General Appearance and Behavior: Age appropriate, good hygiene, not wearing appropriate clothes, good eye contact, cooperative polite with questioning. Cooperation: Participating/engaged Psychomotor Behavior: increased Psychomotor activity Mood: okay Affect and affective range: euthymic Thought Process: Circumstantial Thought Content: responding to internal stimuli Speech: Normal note and pace Intellectual Functioning: Average Suicidal Ideation: Denies SI Homicidal Ideation: Denies HIl Impulse Control: Impaired Insight and Judgment: Limited insight and judgment Memory: Limited Attention: Divided attention impaired Orientation: Alert, oriented Assessment (1) Schizophrenia Treatment Plan Patient admitted for inpatient psychiatric evaluation, medication adjustment and close monitoring The patient's behavior, mood, sleep and appetite will be closely monitored. Patient enrolled in individual and group therapeutic sessions and encouraged to attend. Patient provided with a safe and structured environment. Patient's physical health needs will be addressed by the Hospitalist. Hospitalist Consulted Labs including CBC, CMP, Lipid profile and Hemoglobin A1C levels ordered for baseline reference Social Assessment will be completed and the Cooperative Education Director will work with patient and family to ensure a suitable and safe disposition Medication adjustment will be made as clinically indicated Usual Wellness Confucianist/Preservation: - Start Trazodone 50 mg po QHS & 50 mg po QHS PRN between 10 PM & 2 AM for insomnia - Start Melatonin 5 mg po QHS to promote circadian rhythm - Start [place]-3 for brain health, reduce impulsivity, and as adjunctive treatment for mood disorder, continue upon discharge given overall benefits. - Start B1 prophylaxis with 200 mg po for 5 days The patient agreed on the treatment plan, understood the risk, benefit, alternative treatment, potential consequence of no treatment, and gave informed consent. Estimated days: 2 Post hospital care: primary care provider, psychiatric provider Case staffed with Dr. Hurtado Medications and Allergies Allergies Allergy/AdvReac Type Severity Reaction Status Date / Time No Known Allergies Allergy Verified 07/11/20 11:24 Home Medications Medication Instructions Recorded Confirmed Last Taken Type Lisinopril [Zestril] 5 mg PO QDAY 07/13/20 07/13/20 07/12/20 10:00 History hydroCHLOROthiazide [HCTZ] 25 mg PO QDAY 07/13/20 07/13/20 07/12/20 10:00 History risperiDONE [RisperDAL] 0.5 mg PO BID 07/13/20 07/13/20 07/12/20 15:00 History traZODone [Desyrel] 50 mg PO QHS 07/13/20 07/13/20 07/12/20 22:00 History Active Meds: Active Medications Acetaminophen (Acetaminophen 325 Mg Tab) 650 mg PO Q6H PRN PRN Reason: Pain, Mild (1-3) Last Admin: 07/19/20 23:53 Dose: 650 mg Documented by: Clonidine HCl (Clonidine 0.1 Mg Tab) 0.2 mg PO QDAY [facility] Last Admin: 07/20/20 09:27 Dose: 0.2 mg Documented by: Divalproex Sodium (Divalproex Dr 500 Mg Tab) 500 mg PO TID [facility] Last Admin: 07/20/20 21:28 Dose: 500 mg Documented by: Haloperidol Lactate (Haloperidol Lactate 5 Mg/1 Ml Inj) 5 mg IM Q6H PRN PRN Reason: Agitation Hydralazine HCl (Hydralazine 10 Mg Tab) 5 mg PO Q4H PRN PRN Reason: Hypertension Hydrochlorothiazide (Hydrochlorothiazide 25 Mg Tab) 25 mg PO QDAY [facility] Last Admin: 07/20/20 09:26 Dose: 25 mg Documented by: Lisinopril (Lisinopril 5 Mg Tab) 5 mg PO QDAY [facility] Last Admin: 07/20/20 09:27 Dose: 5 mg Documented by: Lorazepam (Lorazepam 2 Mg/Ml Vial) 2 mg IM Q4H PRN PRN Reason: Agitation Mirtazapine (Mirtazapine 15 Mg Tab) 15 mg PO QHS [facility] Last Admin: 07/20/20 21:28 Dose: 15 mg Documented by: Risperidone (Risperidone 1 Mg Tab) 2 mg PO BID [facility] Last Admin: 07/20/20 21:28 Dose: 2 mg Documented by: Results - Results Labs/Vitals: Laboratory Last Values WBC 7.9 K/mm3 (4.5-11.0) 07/13/20 06:57 RBC 5.16 M/mm3 (3.65-5.03) H 07/13/20 06:57 Hgb 15.6 gm/dl (11.8-15.2) H 07/13/20 06:57 Hct 47.4 % (35.5-45.6) H D 07/13/20 06:57 MCV 92 fl (84-94) 07/13/20 06:57 MCH 30 pg (28-32) 07/13/20 06:57 MCHC 33 % (32-34) 07/13/20 06:57 RDW 13.1 % (13.2-15.2) L 07/13/20 06:57 Plt Count 203 K/mm3 (140-440) 07/13/20 06:57 Lymph % (Auto) 21.1 % (13.4-35.0) 07/13/20 06:57 [place] % (Auto) 5.3 % (0.0-7.3) 07/13/20 06:57 Eos % (Auto) 1.1 % (0.0-4.3) 07/13/20 06:57 Baso % (Auto) 0.4 % (0.0-1.8) 07/13/20 06:57 Lymph # (Auto) 1.7 K/mm3 (1.2-5.4) 07/13/20 06:57 [place] # (Auto) 0.4 K/mm3 (0.0-0.8) 07/13/20 06:57 Eos # (Auto) 0.1 K/mm3 (0.0-0.4) 07/13/20 06:57 Baso # (Auto) 0.0 K/mm3 (0.0-0.1) 07/13/20 06:57 Seg Neutrophils % 72.1 % (40.0-70.0) H 07/13/20 06:57 Seg Neutrophils # 5.7 K/mm3 (1.8-7.7) 07/13/20 06:57 Sodium 138 mmol/L (137-145) 07/13/20 06:57 Potassium 3.4 mmol/L (3.6-5.0) L 07/13/20 06:57 Chloride 97.7 mmol/L (98-107) L 07/13/20 06:57 Carbon Dioxide 30 mmol/L (22-30) 07/13/20 06:57 Anion Gap 14 mmol/L 07/13/20 06:57 BUN 14 mg/dL (9-20) 07/13/20 06:57 Creatinine 1.1 mg/dL (0.8-1.3) 07/13/20 06:57 Estimated GFR > 60 ml/min 07/13/20 06:57 BUN/Creatinine Ratio 13 % 07/13/20 06:57 Glucose 100 mg/dL (75-100) 07/13/20 06:57 POC Glucose 70 mg/dL (70-105) 07/20/20 08:01 Hemoglobin A1c 5.5 % (4-6) 07/13/20 06:57 Calcium 10.2 mg/dL (8.4-10.2) 07/13/20 06:57 Total Bilirubin 0.70 mg/dL (0.1-1.2) 07/13/20 06:57 AST 22 units/L (5-40) 07/13/20 06:57 ALT 15 units/L (7-56) 07/13/20 06:57 Alkaline Phosphatase 86 units/L (35-129) 07/13/20 06:57 Total Protein 7.6 g/dL (6.3-8.2) 07/13/20 06:57 Albumin 4.6 g/dL (3.9-5) 07/13/20 06:57 Albumin/Globulin Ratio 1.5 % 07/13/20 06:57 Triglycerides 69 mg/dL (2-149) 07/13/20 06:57 Cholesterol 113 mg/dL (50-199) 07/13/20 06:57 LDL Cholesterol Direct 44 mg/dL (50-130) L 07/13/20 06:57 HDL Cholesterol 66 mg/dL (40-59) H 07/13/20 06:57 Cholesterol/HDL Ratio 1.71 % 07/13/20 06:57 TSH 2.420 mlU/mL (0.270-4.200) 07/13/20 06:57 Valproic Acid 70.1 ug/mL (50-100) 07/18/20 13:53 Coronavirus (PCR) Negative (Negative) 07/19/20 Unknown Last Vital Signs Temp 97.7 F 07/20/20 22:00 Pulse 86 07/20/20 22:00 Resp 15 07/20/20 22:00 BP 111/75 07/20/20 22:00 Pulse Ox 100 07/20/20 22:00
[2020-07-21] MEDS: hydroCHLOROthiazide 25 MG TAB PO SCH (09:04)
[2020-07-21] MEDS: cloNIDine 0.1 MG TAB PO SCH (09:04)
[2020-07-21] MEDS: DIVALPROEX DR 500 MG TAB PO SCH ×3 (09:04→20:59)
[2020-07-21] MEDS: risperiDONE 1 MG TAB PO SCH ×2 (09:04→21:07)
[2020-07-21] MEDS: LISINOPRIL 5 MG TAB PO SCH (09:05)
[2020-07-21] MEDS: MIRTAZAPINE 15 MG TAB PO SCH (21:07)
--- NOTE | 2020-07-22 08:04 | Progress Note ---
Subjective Date of service: 07/22/20 Principal diagnosis: (1) Schizophrenia Subjective Comment: Per nurse note: Pt received in his room standing and actively responding to internal stimulus. Disorganized, but able to comprehend. Denies self harm or HI. No acute distress observed. Will continue to monitor. The patient was seen today, he was pacing around in the schulz. He is asking to go home. He is talking to himself. He denies SI/HI. Reason for continued inpatient treatment: Although at times, the patient is observed talking to himself, he has improved significantly and likely at his baseline. Will discuss with social economist plan for discharge to ensue patient safety and outpatient treatment to maintain mental health stability upon release. REVIEW OF SYSTEMS Constitutional: Negative for weight loss ENT: Negative for stridor Respiratory: Negative for cough or hemoptysis All other systems reviewed and are negative MENTAL STATUS EXAMINATION General Appearance and Behavior: Age appropriate, good hygiene, not wearing appropriate clothes, good eye contact, cooperative polite with questioning. Cooperation: Participating/engaged Psychomotor Behavior: increased Psychomotor activity Mood: okay Affect and affective range: euthymic Thought Process: Circumstantial, disorganized Thought Content: hallucinations Speech: Normal note and pace Intellectual Functioning: Average Suicidal Ideation: Denies SI Homicidal Ideation: Denies HIl Impulse Control: Impaired Insight and Judgment: poor insight and judgment Memory: Limited Attention: Divided attention impaired Orientation: Alert, oriented Assessment (1) Schizophrenia Treatment Plan Patient admitted for inpatient psychiatric evaluation, medication adjustment and close monitoring The patient's behavior, mood, sleep and appetite will be closely monitored. Patient enrolled in individual and group therapeutic sessions and encouraged to attend. Patient provided with a safe and structured environment. Patient's physical health needs will be addressed by the Hospitalist. Hospitalist Consulted Labs including CBC, CMP, Lipid profile and Hemoglobin A1C levels ordered for baseline reference Social Assessment will be completed and the Dye Range Operator will work with patient and family to ensure a suitable and safe disposition Medication adjustment will be made as clinically indicated Start Klonopin 0.25mg po daily x 3 days Usual Wellness Anabaptist/Preservation: - Start Trazodone 50 mg po QHS & 50 mg po QHS PRN between 10 PM & 2 AM for insomnia - Start Melatonin 5 mg po QHS to promote circadian rhythm - Start [place]-3 for brain health, reduce impulsivity, and as adjunctive treatment for mood disorder, continue upon discharge given overall benefits. - Start B1 prophylaxis with 200 mg po for 5 days The patient agreed on the treatment plan, understood the risk, benefit, alternative treatment, potential consequence of no treatment, and gave informed consent. Estimated days: 2 Post hospital care: primary care provider, psychiatric provider Case staffed with Dr. Hurtado Medications and Allergies Allergies Allergy/AdvReac Type Severity Reaction Status Date / Time No Known Allergies Allergy Verified 07/11/20 11:24 Home Medications Medication Instructions Recorded Confirmed Last Taken Type Lisinopril [Zestril] 5 mg PO QDAY 07/13/20 07/13/20 07/12/20 10:00 History hydroCHLOROthiazide [HCTZ] 25 mg PO QDAY 07/13/20 07/13/20 07/12/20 10:00 History risperiDONE [RisperDAL] 0.5 mg PO BID 07/13/20 07/13/20 07/12/20 15:00 History traZODone [Desyrel] 50 mg PO QHS 07/13/20 07/13/20 07/12/20 22:00 History Active Meds: Active Medications Acetaminophen (Acetaminophen 325 Mg Tab) 650 mg PO Q6H PRN PRN Reason: Pain, Mild (1-3) Last Admin: 07/19/20 23:53 Dose: 650 mg Documented by: Clonidine HCl (Clonidine 0.1 Mg Tab) 0.2 mg PO QDAY [facility] Last Admin: 07/21/20 09:04 Dose: 0.2 mg Documented by: Divalproex Sodium (Divalproex Dr 500 Mg Tab) 500 mg PO TID [facility] Last Admin: 07/21/20 20:59 Dose: 500 mg Documented by: Haloperidol Lactate (Haloperidol Lactate 5 Mg/1 Ml Inj) 5 mg IM Q6H PRN PRN Reason: Agitation Hydralazine HCl (Hydralazine 10 Mg Tab) 5 mg PO Q4H PRN PRN Reason: Hypertension Hydrochlorothiazide (Hydrochlorothiazide 25 Mg Tab) 25 mg PO QDAY [facility] Last Admin: 07/21/20 09:04 Dose: 25 mg Documented by: Lisinopril (Lisinopril 5 Mg Tab) 5 mg PO QDAY [facility] Last Admin: 07/21/20 09:05 Dose: 5 mg Documented by: Lorazepam (Lorazepam 2 Mg/Ml Vial) 2 mg IM Q4H PRN PRN Reason: Agitation Mirtazapine (Mirtazapine 15 Mg Tab) 15 mg PO QHS [facility] Last Admin: 07/21/20 21:07 Dose: 15 mg Documented by: Risperidone (Risperidone 1 Mg Tab) 2 mg PO BID [facility] Last Admin: 07/21/20 21:07 Dose: 2 mg Documented by: Results - Results Labs/Vitals: Laboratory Last Values WBC 7.9 K/mm3 (4.5-11.0) 07/13/20 06:57 RBC 5.16 M/mm3 (3.65-5.03) H 07/13/20 06:57 Hgb 15.6 gm/dl (11.8-15.2) H 07/13/20 06:57 Hct 47.4 % (35.5-45.6) H D 07/13/20 06:57 MCV 92 fl (84-94) 07/13/20 06:57 MCH 30 pg (28-32) 07/13/20 06:57 MCHC 33 % (32-34) 07/13/20 06:57 RDW 13.1 % (13.2-15.2) L 07/13/20 06:57 Plt Count 203 K/mm3 (140-440) 07/13/20 06:57 Lymph % (Auto) 21.1 % (13.4-35.0) 07/13/20 06:57 [place] % (Auto) 5.3 % (0.0-7.3) 07/13/20 06:57 Eos % (Auto) 1.1 % (0.0-4.3) 07/13/20 06:57 Baso % (Auto) 0.4 % (0.0-1.8) 07/13/20 06:57 Lymph # (Auto) 1.7 K/mm3 (1.2-5.4) 07/13/20 06:57 [place] # (Auto) 0.4 K/mm3 (0.0-0.8) 07/13/20 06:57 Eos # (Auto) 0.1 K/mm3 (0.0-0.4) 07/13/20 06:57 Baso # (Auto) 0.0 K/mm3 (0.0-0.1) 07/13/20 06:57 Seg Neutrophils % 72.1 % (40.0-70.0) H 07/13/20 06:57 Seg Neutrophils # 5.7 K/mm3 (1.8-7.7) 07/13/20 06:57 Sodium 138 mmol/L (137-145) 07/13/20 06:57 Potassium 3.4 mmol/L (3.6-5.0) L 07/13/20 06:57 Chloride 97.7 mmol/L (98-107) L 07/13/20 06:57 Carbon Dioxide 30 mmol/L (22-30) 07/13/20 06:57 Anion Gap 14 mmol/L 07/13/20 06:57 BUN 14 mg/dL (9-20) 07/13/20 06:57 Creatinine 1.1 mg/dL (0.8-1.3) 07/13/20 06:57 Estimated GFR > 60 ml/min 07/13/20 06:57 BUN/Creatinine Ratio 13 % 07/13/20 06:57 Glucose 100 mg/dL (75-100) 07/13/20 06:57 POC Glucose 88 mg/dL (70-105) 07/22/20 07:40 Hemoglobin A1c 5.5 % (4-6) 07/13/20 06:57 Calcium 10.2 mg/dL (8.4-10.2) 07/13/20 06:57 Total Bilirubin 0.70 mg/dL (0.1-1.2) 07/13/20 06:57 AST 22 units/L (5-40) 07/13/20 06:57 ALT 15 units/L (7-56) 07/13/20 06:57 Alkaline Phosphatase 86 units/L (35-129) 07/13/20 06:57 Total Protein 7.6 g/dL (6.3-8.2) 07/13/20 06:57 Albumin 4.6 g/dL (3.9-5) 07/13/20 06:57 Albumin/Globulin Ratio 1.5 % 07/13/20 06:57 Triglycerides 69 mg/dL (2-149) 07/13/20 06:57 Cholesterol 113 mg/dL (50-199) 07/13/20 06:57 LDL Cholesterol Direct 44 mg/dL (50-130) L 07/13/20 06:57 HDL Cholesterol 66 mg/dL (40-59) H 07/13/20 06:57 Cholesterol/HDL Ratio 1.71 % 07/13/20 06:57 TSH 2.420 mlU/mL (0.270-4.200) 07/13/20 06:57 Valproic Acid 70.1 ug/mL (50-100) 07/18/20 13:53 Coronavirus (PCR) Negative (Negative) 07/19/20 Unknown Last Vital Signs Temp 97.9 F 07/21/20 19:47 Pulse 119 H 07/21/20 19:47 Resp 20 07/21/20 19:47 BP 145/87 07/21/20 19:47 Pulse Ox 100 07/21/20 19:47
[2020-07-22] MEDS: DIVALPROEX DR 500 MG TAB PO SCH ×3 (09:45→20:49)
[2020-07-22] MEDS: risperiDONE 1 MG TAB PO SCH ×2 (09:46→21:02)
[2020-07-22] MEDS: hydroCHLOROthiazide 25 MG TAB PO SCH (09:46)
[2020-07-22] MEDS: cloNIDine 0.1 MG TAB PO SCH (09:46)
[2020-07-22] MEDS: LISINOPRIL 5 MG TAB PO SCH (09:46)
[2020-07-22] MEDS: clonazePAM 0.5 MG TAB PO SCH ×2 (09:49→21:02)
[2020-07-22] MEDS: MIRTAZAPINE 15 MG TAB PO SCH (21:02)
[2020-07-23] MEDS: hydroCHLOROthiazide 25 MG TAB PO SCH (10:16)
[2020-07-23] MEDS: risperiDONE 1 MG TAB PO SCH ×2 (10:16→21:00)
[2020-07-23] MEDS: LISINOPRIL 5 MG TAB PO SCH (10:17)
[2020-07-23] MEDS: DIVALPROEX DR 500 MG TAB PO SCH ×3 (10:17→21:00)
[2020-07-23] MEDS: clonazePAM 0.5 MG TAB PO SCH ×2 (10:18→21:01)
[2020-07-23] MEDS: cloNIDine 0.1 MG TAB PO SCH (10:18)
[2020-07-23] MEDS: MIRTAZAPINE 15 MG TAB PO SCH (21:00)
[2020-07-24] MEDS: DIVALPROEX DR 500 MG TAB PO SCH ×2 (09:15→14:00)
[2020-07-24] MEDS: cloNIDine 0.1 MG TAB PO SCH (09:15)
[2020-07-24] MEDS: hydroCHLOROthiazide 25 MG TAB PO SCH (09:15)
[2020-07-24] MEDS: risperiDONE 1 MG TAB PO SCH (09:15)
[2020-07-24] MEDS: LISINOPRIL 5 MG TAB PO SCH (09:16)
[2020-07-24] MEDS: clonazePAM 0.5 MG TAB PO SCH (09:16)
[2020-07-24 09:20] VITALS: BP 141/82
--- NOTE | 2020-07-24 11:07 | Discharge Summary ---
Providers - Providers Date of Admission: 07/12/20 21:27 Date of discharge: 07/24/20 Attending physician: MICHELLE OLSEN MD 07/12/20 16:04 Consult to Physician [CONS] Routine Comment: Consulting Provider: EMILY BEYER Physician Instructions: Reason For Exam: manage medical conditions Primary care physician: TIPPLE SUPERVISOR Hospitalization Reason for admission: psychosis Admitting Diagnosis: F20.9 - SCHIZOPHRENIA, UNSPECIFIED Condition: Stable Hospital course: The patient was provided inpatient psychiatric treatment with safe and supportive environment, group/individual therapy, psychiatric medication, medication adjustment, adverse effect monitor, medical evaluation, medical treatment, social service assessment, social support meeting, placement assessment and psycho-education. The patients mood, behavior, compliance to treatment and appreciation on family/social support are improved and stabilized. At the time of discharge, the patient no endangering behavior and no debilitating adverse effects. The family agreed on the treatment plan, understood the risk, benefit, alternative treatment, potential consequence of no treatment, and gave informed consent. Disposition: - TO HOME OR SELFCARE Time spent for discharge: 40 Allergies/Adverse Reactions: Allergies No Known Allergies Allergy (Verified 07/11/20 11:24) Vital Signs: Last Vital Signs Temp 97.4 F L 07/24/20 09:14 Pulse 90 07/24/20 09:15 Resp 20 07/24/20 09:14 BP 141/82 07/24/20 09:15 Pulse Ox 100 07/24/20 09:14 Last Lab: Laboratory Last Values WBC 7.9 K/mm3 (4.5-11.0) 07/13/20 06:57 RBC 5.16 M/mm3 (3.65-5.03) H 07/13/20 06:57 Hgb 15.6 gm/dl (11.8-15.2) H 07/13/20 06:57 Hct 47.4 % (35.5-45.6) H D 07/13/20 06:57 MCV 92 fl (84-94) 07/13/20 06:57 MCH 30 pg (28-32) 07/13/20 06:57 MCHC 33 % (32-34) 07/13/20 06:57 RDW 13.1 % (13.2-15.2) L 07/13/20 06:57 Plt Count 203 K/mm3 (140-440) 07/13/20 06:57 Lymph % (Auto) 21.1 % (13.4-35.0) 07/13/20 06:57 [place] % (Auto) 5.3 % (0.0-7.3) 07/13/20 06:57 Eos % (Auto) 1.1 % (0.0-4.3) 07/13/20 06:57 Baso % (Auto) 0.4 % (0.0-1.8) 07/13/20 06:57 Lymph # (Auto) 1.7 K/mm3 (1.2-5.4) 07/13/20 06:57 [place] # (Auto) 0.4 K/mm3 (0.0-0.8) 07/13/20 06:57 Eos # (Auto) 0.1 K/mm3 (0.0-0.4) 07/13/20 06:57 Baso # (Auto) 0.0 K/mm3 (0.0-0.1) 07/13/20 06:57 Seg Neutrophils % 72.1 % (40.0-70.0) H 07/13/20 06:57 Seg Neutrophils # 5.7 K/mm3 (1.8-7.7) 07/13/20 06:57 Sodium 138 mmol/L (137-145) 07/13/20 06:57 Potassium 3.4 mmol/L (3.6-5.0) L 07/13/20 06:57 Chloride 97.7 mmol/L (98-107) L 07/13/20 06:57 Carbon Dioxide 30 mmol/L (22-30) 07/13/20 06:57 Anion Gap 14 mmol/L 07/13/20 06:57 BUN 14 mg/dL (9-20) 07/13/20 06:57 Creatinine 1.1 mg/dL (0.8-1.3) 07/13/20 06:57 Estimated GFR > 60 ml/min 07/13/20 06:57 BUN/Creatinine Ratio 13 % 07/13/20 06:57 Glucose 100 mg/dL (75-100) 07/13/20 06:57 POC Glucose 71 mg/dL (70-105) 07/24/20 06:24 Hemoglobin A1c 5.5 % (4-6) 07/13/20 06:57 Calcium 10.2 mg/dL (8.4-10.2) 07/13/20 06:57 Total Bilirubin 0.70 mg/dL (0.1-1.2) 07/13/20 06:57 AST 22 units/L (5-40) 07/13/20 06:57 ALT 15 units/L (7-56) 07/13/20 06:57 Alkaline Phosphatase 86 units/L (35-129) 07/13/20 06:57 Total Protein 7.6 g/dL (6.3-8.2) 07/13/20 06:57 Albumin 4.6 g/dL (3.9-5) 07/13/20 06:57 Albumin/Globulin Ratio 1.5 % 07/13/20 06:57 Triglycerides 69 mg/dL (2-149) 07/13/20 06:57 Cholesterol 113 mg/dL (50-199) 07/13/20 06:57 LDL Cholesterol Direct 44 mg/dL (50-130) L 07/13/20 06:57 HDL Cholesterol 66 mg/dL (40-59) H 07/13/20 06:57 Cholesterol/HDL Ratio 1.71 % 07/13/20 06:57 TSH 2.420 mlU/mL (0.270-4.200) 07/13/20 06:57 Valproic Acid 70.1 ug/mL (50-100) 07/18/20 13:53 Coronavirus (PCR) Negative (Negative) 07/19/20 Unknown Core Measure Documentation - Palliative Care Palliative Care/ Comfort Measures: Not Applicable - Core Measures Any of the following diagnoses?: none Exam - Constitutional Vitals: Temp Pulse Resp BP Pulse Ox 97.4 F L 90 20 141/82 100 07/24/20 09:14 07/24/20 09:15 07/24/20 09:14 07/24/20 09:15 07/24/20 09:14 General appearance: Present: no acute distress - EENT Eyes: Present: PERRL, EOM intact ENT: hearing intact, clear oral mucosa - Neck Neck: Present: supple, normal ROM - Respiratory Respiratory effort: normal Plan Activity: advance as tolerated Weight Bearing Status: Weight Bear as Tolerated Care Plan Goals: Maintain good and stable mental health Plan of Treatment: The patient should be compliant with medications, not to use drugs, and not to drink alcohol. The patient understands that if suicidal ideas, homicidal ideas or any endangering feeling arise, the patient should seek assistance including, but not limited to crisis hotline, and emergency room. Assessment: Schizophrenia Follow up with: PRIMARY CARE, [Primary Care Provider] - 7 Days Prescriptions: Mirtazapine [Remeron 15mg TAB] 15 mg PO QHS #[address] [Depakote Dr] 500 mg PO TID #90 tablet risperiDONE [RisperDAL] 2 mg PO BID #60 tablet
== END 2020-07-24 15:15 | disposition home or self-care (01) | DRG 885 ==
LOC: 3A 15:15 → UNDOADMIN 15:15 → 5A 21:27
PROVIDERS: ADMIT Psychiatry & Neurology Psychiatry; ATTEND Psychiatry & Neurology Psychiatry
DX: F20.9 Schizophrenia, unspecified (principal); Z20.822 Contact with and (suspected) exposure to COVID-19; Z79.899 Other long term (current) drug therapy
CPT/HCPCS: 36415; 71045; 80053; 80061; 80164; 80307; 80320; 81001; 82550; 82962; 83036; 83735; 84443; 85025; 85027; 96372; G0378; G0480; J1630; J2060; U0003

== ENCOUNTER 2020-09-24 10:26 | Emergency (ER) | payer MEDICARE ==
[2020-09-24 12:02] LABS: Basophils % (Auto) 0.5 % (0.0-1.8); Eosinophils # (Auto) 0.3 K/mm3 (0.0-0.4); Eosinophils % (Auto) 2.8 % (0.0-4.3); Hematocrit 41.3 % (35.5-45.6); Lymphocytes # (Auto) 1.8 K/mm3 (1.2-5.4); Lymphocytes % (Auto) 19.5 % (13.4-35.0); Mean Corpuscular HGB Conc 34 % (32-34); Mean Corpuscular Volume 90 fl (84-94); Monocytes # (Auto) 0.4 K/mm3 (0.0-0.8); Monocytes % (Auto) 4.2 % (0.0-7.3); Platelet Count 193 K/mm3 (140-440); Red Cell Distribution Width 14.4 % (13.2-15.2)
--- NOTE | 2020-09-24 12:08 | Emergency Department Report ---
HPI - General Chief Complaint: Psych Time Seen by Provider: 09/24/20 11:44 - HPI HPI: 54-year-old male with history of hypertension and schizoaffective disorder brought in by his primary caregiver, his niece Jami Garcia ([phone]) due to the patient displaying multiple behaviors that she considers dangerous and scary, primarily he is speaking to himself, slapping himself, not sleeping, and frequently wandering off to unknown locations for prolonged periods of time over the past few days. The majority of the history was obtained through the patient's niece over the telephone. She states that the patient was recently discharged from [facility] on 09/19/2020. She has not heard from the patient in multiple years but was contacted when he was discharged and became his caregiver. She states that he was discharged with only one prescription which she brought to [facility] pharmacy but was unable to be filled because it was not in stock. He has not been taking any medications since September 19. She reports that because of these dangerous behaviors she decided to bring him in today. She denies that he is displayed any physical symptoms/complaints over the same period of time. When I went to assess the patient, he appears happy and is seen laughing. He is hyperverbal but with disorganized and at times nonsensical speech. He did tell me that he is hearing voices in his head that are telling him to kill himself. When asked however, he says that he does not want to kill himself. He is speaking very fast and fluently about various unrelated topics at 1 point said that he has a headache. He was unable to tell me about any other physical symptoms or complaints. I spoke with the patient's niece over the telephone again and she states that he has been that way since she picked him up from [place] on September 19. Further details of the HPI are limited due to the patient's clinical condition. ED Past Medical Hx - Past Medical History Hx Hypertension: Yes Hx Congestive Heart Failure: No Hx Diabetes: Yes Hx Renal Disease: No Hx Arthritis: No Hx Seizures: No Hx Asthma: No Hx COPD: No Hx Dementia: No Additional medical history: SCHIZOEFFCTIVE DISORDER - Surgical History Hx Cholecystectomy: No Hx Appendectomy: No - Social History Smoking Status: Never Smoker Substance Use Type: None - Medications Home Medications: Home Medications Medication Instructions Recorded Confirmed Last Taken Type Lisinopril [Zestril] 5 mg PO QDAY 07/13/20 07/13/20 07/12/20 10:00 History hydroCHLOROthiazide [HCTZ] 25 mg PO QDAY 07/13/20 07/13/20 07/12/20 10:00 History traZODone [Desyrel] 50 mg PO QHS 07/13/20 07/13/20 07/12/20 22:[address] [Depakote Dr] 500 mg PO TID #90 tablet 07/24/20 Unknown Rx Mirtazapine [Remeron 15mg TAB] 15 mg PO QHS #30 tablet 07/24/20 Unknown Rx risperiDONE [RisperDAL] 2 mg PO BID #60 tablet 07/24/20 Unknown Rx ED Review of Systems ROS: Stated complaint: SCHIZOPHERNIA Other details as noted in HPI Comment: Unobtainable due to pts medical conditions Physical Exam - Physical Exam Vital Signs: Vital Signs 09/24/20 10:58 Temperature 97.7 F Pulse Rate 67 Respiratory 20 Rate Blood Pressure 155/95 O2 Sat by Pulse 100 Oximetry Physical Exam: GENERAL: Well developed and well nourished. No acute distress HEENT: Normocephalic. 2cm mass to the left forehead which is firm and most consistent with sebaceous cyst. No obvious signs of trauma. Moist mucous membranes. Poor dentition. EYES: Extraocular movements are intact. Pupils are equal round and reactive to light bilaterally NECK: Supple. Trachea is midline. LUNGS: Nonlabored breathing. Equal chest rise bilaterally. Clear to auscultation bilaterally. HEART/CARDIOVASCULAR: Regular rate and rhythm. No murmurs or rubs. VASCULAR: 2+ peripheral pulses. Cap refill < 2 seconds ABDOMEN: Abdomen is soft and nondistended. There is no significant tenderness, guarding or rebound. SKIN: Skin is warm and dry NEURO: Patient is awake and alert. Patient is oriented to self but unclear whether he is oriented to time, place, or situation given his hyperverbal, circumferential, tangential, and at times unintelligable speech. flute teacher II-XII grossly intact. No focal deficits. Normal motor and sensory exam throughout. Normal gait. MUSCULOSKELETAL: No obvious deformities. No significant tenderness. Normal ROM throughout. ED Course Vital Signs 09/24/20 10:58 Temperature 97.7 F Pulse Rate 67 Respiratory 20 Rate Blood Pressure 155/95 O2 Sat by Pulse 100 Oximetry ED Medical Decision Making - Lab Data Result diagrams: 09/24/20 11:20 09/24/20 11:20 Lab Results 09/24/20 09/24/20 09/24/20 Range/Units 11:20 11:20 11:20 WBC (4.5-11.0) K/mm3 RBC (3.65-5.03) M/mm3 Hgb (11.8-15.2) gm/dl Hct (35.5-45.6) % MCV (84-94) fl MCH (28-32) pg MCHC (32-34) % RDW (13.2-15.2) % Plt Count (140-440) K/mm3 Lymph % (Auto) (13.4-35.0) % [place] % (Auto) (0.0-7.3) % Eos % (Auto) (0.0-4.3) % Baso % (Auto) (0.0-1.8) % Lymph # (Auto) (1.2-5.4) K/mm3 [place] # (Auto) (0.0-0.8) K/mm3 Eos # (Auto) (0.0-0.4) K/mm3 Baso # (Auto) (0.0-0.1) K/mm3 Seg Neutrophils % (40.0-70.0) % Seg Neutrophils # (1.8-7.7) K/mm3 Sodium 141 (137-145) mmol/L Potassium 3.9 (3.6-5.0) mmol/L Chloride 102.5 (98-107) mmol/L Carbon Dioxide 27 (22-30) mmol/L Anion Gap 15 mmol/L BUN 14 (9-20) mg/dL Creatinine 1.0 (0.8-1.3) mg/dL Estimated GFR > 60 ml/min BUN/Creatinine Ratio 14 % Glucose 92 (75-100) mg/dL Calcium 9.6 (8.4-10.2) mg/dL Urine Color (Yellow) Urine Turbidity (Clear) Urine pH (5.0-7.0) Ur Specific [place] (1.003-1.030) Urine Protein (Negative) mg/dL Urine Glucose (UA) (Negative) mg/dL Urine Ketones (Negative) mg/dL Urine Blood (Negative) Urine Nitrite (Negative) Urine Bilirubin (Negative) Urine Urobilinogen (<2.0) mg/dL Ur Leukocyte Esterase (Negative) Urine WBC (Auto) (0.0-6.0) /HPF Urine RBC (Auto) (0.0-6.0) /HPF Hyaline Casts /LPF Urine Mucus /HPF Salicylates < 0.3 L (2.8-20.0) mg/dL Urine Opiates Screen Urine Methadone Screen Acetaminophen 5.0 L (10.0-30.0) ug/mL Ur Barbiturates Screen Ur Phencyclidine Scrn Ur Amphetamines Screen U Benzodiazepines Scrn Urine Cocaine Screen U Marijuana (THC) Screen Drugs of Abuse Note Plasma/Serum Alcohol (0-0.07) % 09/24/20 09/24/20 09/24/20 Range/Units 11:20 11:20 Unknown WBC 9.0 (4.5-11.0) K/mm3 RBC 4.60 (3.65-5.03) M/mm3 Hgb 14.0 (11.8-15.2) gm/dl Hct 41.3 (35.5-45.6) % MCV 90 (84-94) fl MCH 31 (28-32) pg MCHC 34 (32-34) % RDW 14.4 (13.2-15.2) % Plt Count 193 (140-440) K/mm3 Lymph % (Auto) 19.5 (13.4-35.0) % [place] % (Auto) 4.2 (0.0-7.3) % Eos % (Auto) 2.8 (0.0-4.3) % Baso % (Auto) 0.5 (0.0-1.8) % Lymph # (Auto) 1.8 (1.2-5.4) K/mm3 [place] # (Auto) 0.4 (0.0-0.8) K/mm3 Eos # (Auto) 0.3 (0.0-0.4) K/mm3 Baso # (Auto) 0.0 (0.0-0.1) K/mm3 Seg Neutrophils % 73.0 H (40.0-70.0) % Seg Neutrophils # 6.5 (1.8-7.7) K/mm3 Sodium (137-145) mmol/L Potassium (3.6-5.0) mmol/L Chloride (98-107) mmol/L Carbon Dioxide (22-30) mmol/L Anion Gap mmol/L BUN (9-20) mg/dL Creatinine (0.8-1.3) mg/dL Estimated GFR ml/min BUN/Creatinine Ratio % Glucose (75-100) mg/dL Calcium (8.4-10.2) mg/dL Urine Color Yellow (Yellow) Urine Turbidity Clear (Clear) Urine pH 5.0 (5.0-7.0) Ur Specific [place] 1.031 H (1.003-1.030) Urine Protein <15 mg/dl (Negative) mg/dL Urine Glucose (UA) Neg (Negative) mg/dL Urine Ketones Neg (Negative) mg/dL Urine Blood Neg (Negative) Urine Nitrite Neg (Negative) Urine Bilirubin Neg (Negative) Urine Urobilinogen < 2.0 (<2.0) mg/dL Ur Leukocyte Esterase Neg (Negative) Urine WBC (Auto) 1.0 (0.0-6.0) /HPF Urine RBC (Auto) 2.0 (0.0-6.0) /HPF Hyaline Casts 1 /LPF Urine Mucus 3+ /HPF Salicylates (2.8-20.0) mg/dL Urine Opiates Screen Urine Methadone Screen Acetaminophen (10.0-30.0) ug/mL Ur Barbiturates Screen Ur Phencyclidine Scrn Ur Amphetamines Screen U Benzodiazepines Scrn Urine Cocaine Screen U Marijuana (THC) Screen Drugs of Abuse Note Plasma/Serum Alcohol < 0.01 (0-0.07) % 09/24/20 Range/Units Unknown WBC (4.5-11.0) K/mm3 RBC (3.65-5.03) M/mm3 Hgb (11.8-15.2) gm/dl Hct (35.5-45.6) % MCV (84-94) fl MCH (28-32) pg MCHC (32-34) % RDW (13.2-15.2) % Plt Count (140-440) K/mm3 Lymph % (Auto) (13.4-35.0) % [place] % (Auto) (0.0-7.3) % Eos % (Auto) (0.0-4.3) % Baso % (Auto) (0.0-1.8) % Lymph # (Auto) (1.2-5.4) K/mm3 [place] # (Auto) (0.0-0.8) K/mm3 Eos # (Auto) (0.0-0.4) K/mm3 Baso # (Auto) (0.0-0.1) K/mm3 Seg Neutrophils % (40.0-70.0) % Seg Neutrophils # (1.8-7.7) K/mm3 Sodium (137-145) mmol/L Potassium (3.6-5.0) mmol/L Chloride (98-107) mmol/L Carbon Dioxide (22-30) mmol/L Anion Gap mmol/L BUN (9-20) mg/dL Creatinine (0.8-1.3) mg/dL Estimated GFR ml/min BUN/Creatinine Ratio % Glucose (75-100) mg/dL Calcium (8.4-10.2) mg/dL Urine Color (Yellow) Urine Turbidity (Clear) Urine pH (5.0-7.0) Ur Specific [place] (1.003-1.030) Urine Protein (Negative) mg/dL Urine Glucose (UA) (Negative) mg/dL Urine Ketones (Negative) mg/dL Urine Blood (Negative) Urine Nitrite (Negative) Urine Bilirubin (Negative) Urine Urobilinogen (<2.0) mg/dL Ur Leukocyte Esterase (Negative) Urine WBC (Auto) (0.0-6.0) /HPF Urine RBC (Auto) (0.0-6.0) /HPF Hyaline Casts /LPF Urine Mucus /HPF Salicylates (2.8-20.0) mg/dL Urine Opiates Screen Negative Urine Methadone Screen Negative Acetaminophen (10.0-30.0) ug/mL Ur Barbiturates Screen Negative Ur Phencyclidine Scrn Negative Ur Amphetamines Screen Negative U Benzodiazepines Scrn Negative Urine Cocaine Screen Negative U Marijuana (THC) Screen Negative Drugs of Abuse Note Disclamer Plasma/Serum Alcohol (0-0.07) % - Radiology Data CT head/brain wo con INDICATION / CLINICAL INFORMATION: 54 years Male; abnormal speech and headache. TECHNIQUE: Routine CT head without contrast. All CT scans at this location are performed using CT dose reduction for ALARA by means of automated exposure control. COMPARISON: None. FINDINGS: BRAIN / INTRACRANIAL CONTENTS: The brain appears to demonstrate appropriate attenuation for age. The ventricular system is within normal limits in size and configuration. There is no clear CT evidence of acute intracranial hemorrhage or significant mass ef fect. ORBITS: No significant abnormality of visualized orbits. SINUSES / MASTOIDS: There is minimal opacification involving left frontal and right maxillary sinuses. CRANIOCERVICAL JUNCTION: No significant abnormality. ADDITIONAL FINDINGS: There is an incidental exostosis along the outer table of the right frontal calvarium. IMPRESSION: 1. There is no CT evidence of acute intracranial process. Signer Name: Abraham Farmer MD Signed: 09/24/2020 1:26 PM Workstation Name: [id number] - Medical Decision Making 54-year-old male with history of hypertension and schizoaffective disorder brought in by his new caregiver, his niece who states that she first assumed her role as caregiver on September 19 of this year when the patient was discharged from [facility] 5 days ago. Patient has been without medication since discharge due to difficulty filling the prescription for clozapine at the pharmacy. Patient has been displaying psychotic-like behaviors including going prolonged periods of time without sleeping, slapping himself, speaking to himself, and wandering off for long periods of time without explanation. On my assessment, the patient has fluent, hyperverbal speech which is disorganized and circumferential as well as tangential. At times his speech is nonsensical and or unintelligible. He does state that he has a headache and that he has command auditory hallucinations telling him to kill himself, although he tells me that he does not want to kill himself. Unable to obtain further details from him because of his current clinical condition. He otherwise has a nonfocal neurologic exam. Although I suspect that the patient's behavior is likely secondary to going 5 days without an antipsychotic, given that he complains of headache and the fact that he has speech which is at times nonsensical and or unintelligible, in addition to the fact there is no record of head CT ever being performed and is unclear medical history given that the caregiver did not start in this role until just 5 days ago, we will obtain CT of the head in addition to the standard medical clearance labs/studies. We will consult mental health for further recommendations regarding treatment and disposition. At 12:40 PM all the labs have returned and reveal no significant leukocytosis or anemia. There is normal kidney function and no significant electrolyte abnormality. Urinalysis is negative for infection. Urine drug screen is negative. The remainder of the laboratory tests are grossly within normal limits. If there are no acute abnormalities found on the CT head, he will be medically cleared for psychiatric recommendations/placement if deemed necessary. CT of the head shows no acute abnormalities. Therefore the patient is medically cleared for psychiatric treatment and placement if necessary. Patient seen by mental health book publisher and placed at inpatient facility on 09/25/2020 Critical care attestation.: If time is entered above; I have spent that time in minutes in the direct care of this critically ill patient, excluding procedure time. ED Disposition Clinical Impression: Psychosis, Auditory hallucinations Disposition: [id number]/TX-[id number] PSY HOSP/PSY UNIT Is pt being admited?: No Condition: Stable Referrals: PRIMARY CAREMD [Primary Care Provider] - 3-5 Days
[2020-09-24 12:12] LABS: BUN/Creatinine Ratio 14; Blood Urea Nitrogen 14 mg/dL (9-20); Calcium 9.6 mg/dL (8.4-10.2); Hemolysis Index 7
[2020-09-24] MEDS ORDERED: ACETAMINOPHEN 325 MG TAB PO ONE (12:25)
[2020-09-24 12:28] LABS: Bilirubin,Urine NEG (Negative); Blood,Urine NEG (Negative); Color,Urine Yellow (Yellow); Hyaline Casts,Urine 1 /LPF; Mucus,Urine 3+ /HPF; Protein,Urine <15 mg/dL mg/dL (Negative); Urobilinogen,Urine < 2.0 mg/dL (<2.0)
[2020-09-24 12:34] LABS: Amphetamine Screen,Urine Negative; Benzodiazepines Screen,Urine Negative; Cannabinoid Screen,Urine Negative; Cocaine Screen,Urine Negative; Methadone Screen,Urine Negative; Opiate Screen,Urine Negative
[2020-09-24] MEDS ORDERED: HALOPERIDOL LACTATE 5 MG/1 ML INJ IM ONE (12:36)
[2020-09-24] MEDS ORDERED: diphenhydrAMINE 50 MG/ML VIAL IM ONE (12:37)
--- NOTE | 2020-09-24 14:30 | Cat Scan Report ---
CT head/brain wo con INDICATION / CLINICAL INFORMATION: 54 years Male; abnormal speech and headache. TECHNIQUE: Routine CT head without contrast. All CT scans at this location are performed using CT dos e reduction for ALARA by means of automated exposure control. COMPARISON: None. FINDINGS: BRAIN / INTRACRANIAL CONTENTS: The brain appears to demonstrate appropriate attenuation for age. The ventricular system is within normal limits in size and configuration. There is no clear CT evidence o f acute intracranial hemorrhage or significant mass effect. ORBITS: No significant abnormality of visualized orbits. SINUSES / MASTOIDS: There is minimal opacification involving left frontal and right maxillary sinuses . CRANIOCERVICAL JUNCTION: No significant abnormality. ADDITIONAL FINDINGS: There is an incidental exostosis along the outer table of the right frontal calv arium. IMPRESSION: 1. There is no CT evidence of acute intracranial process. Signer Name: Abraham Farmer MD Signed: 09/24/2020 2:26 PM Workstation Name: [id number]
--- NOTE | 2020-09-25 09:05 | Consultation ---
History of Present Illness - Reason for Consult Consult date: 09/25/20 Reason for consult: MHE Requesting physician: DALE AGUILAR - History of Present Psychiatric Illness Per ED Provider: 54-year-old male with history of hypertension and schizoaffective disorder brought in by his primary caregiver, his niece Jami Garcia ([phone]) due to the patient displaying multiple behaviors that she considers dangerous and scary, primarily he is speaking to himself, slapping himself, not sleeping, and frequently wandering off to unknown locations for prolonged periods of time over the past few days. The majority of the history was obtained through the patient's niece over the telephone. She states that the patient was recently discharged from [facility] on 09/19/2020. She has not heard from the patient in multiple years but was contacted when he was discharged and became his caregiver. She states that he was discharged with only one prescription which she brought to [facility] pharmacy but was unable to be filled because it was not in stock. He has not been taking any medications since September 19. She reports that because of these dangerous behaviors she decided to bring him in today. She denies that he is displayed any physical symptoms/complaints over the same period of time. When I went to assess the patient, he appears happy and is seen laughing. He is hyperverbal but with disorganized and at times nonsensical speech. He did tell me that he is hearing voices in his head that are telling him to kill himself. When asked however, he says that he does not want to kill himself. He is speaking very fast and fluently about various unrelated topics at 1 point said that he has a headache. He was unable to tell me about any other physical symptoms or complaints. I spoke with the patient's niece over the telephone again and she states that he has been that way since she picked him up from [place] on September 19. Further details of the HPI are limited due to the patient's clinical condition. PSYCH HPI Patient is a 54-year-old single disabled -Turkmen male who is known to me from prior encounter with past psychiatric diagnosis of schizophrenia and unspecified past medical history who presented to the ED accompanied by niece with concerns of engaging behavior requesting their evaluation. Per documentation, patient was just recently discharged from [facility] on the eighth of this month, and was also admitted to our facility in July. Patient examined this morning, patient presented behavior is consistent with his bas erendira prior to discharge from our facility and I am not surprised that he has no acute changes after being discharged from [facility]. Patient needs as only just resumed care for patient within the last 3 to 5 days and she is now well with patient prior mental health status and baseline behavior. I spoke with patient obinna over the phone and had a lengthy discussion about patient presenting behavior please see documentation under treatment plan below PAST PSYCHIATRIC HISTORY Diagnoses: schizophrenia Suicide attempts or Self-harm behavior: Prior psychiatric hospitalizations: yes Substance Abuse history: n/a Previous psychiatric medications tried: yes Outpatient treatment: none PAST MEDICAL HISTORY: Family Psychiatric History: None reported or documented SOCIAL HISTORY Marital Status: single Living Arrangements: with niece Employment Status: [employer] Access to guns/weapons: Education: n/a History of Abuse: Legal History: REVIEW OF SYSTEMS Constitutional: Negative for weight loss ENT: Negative for stridor Respiratory: Negative for cough or hemoptysis All other systems reviewed and are negative MENTAL STATUS EXAMINATION General Appearance and Behavior: Age appropriate, good hygiene, not wearing appropriate clothes, good eye contact, cooperative polite with questioning. Cooperation: Participating/engaged Psychomotor Behavior: increased Psychomotor activity Mood: Good Affect and affective range: euthymic Thought Process:Circumstantial, Thought Content: internal stimulus otherwise normal Speech: pressured, loud volume at times Intellectual Functioning: Average Suicidal Ideation: Denies SI Homicidal Ideation: Denies HIl Impulse Control: Impaired Insight and Judgment: Limited insight and judgment Memory: short term intact Attention: Divided attention impaired Orientation: Alert, oriented. Diagnoses: Assessment (1) Schizophrenia Treatment Plan I called patient obinna to get more pertinent information about the endangering behaviors, she report pt only started, living with them 3-5 days ago. She reports patient talking to self, smirking self and also verbalizing SI. Per my previous examination, most of the reported behaviors are baseline, pt has not been physically threatening and when asked about SI, pt denies. Pt appeared calm and as his usual self from prior inpatient encounter. Patient also was just discharged from [facility] [place], pt niece claims she has not been able to milk pickup driver rx medications. Pt niece report she would like to try another facility, I inform pt I will go ahead and recommend inpatient for outside facility referral MEDICATIONS: Risks, benefits and alternatives of medications discussed with the patient, questions answered and consent obtained from patient. PSYCHOTHERAPY: Supportive psychotherapy provided MEDICAL: Per primary team DELIRIUM PRECAUTIONS: Please re-orient patient frequently, keep lights on during the day, and minimize benzodiazepines and opiates as these medications could worsen patient's confusion. CITY CARRIER ASSISTANT: DISPOSITION: Do Recommend acute inpatient psychiatric hospitalization at this time per niece request. Case discussed with Dr. Hurtado who agrees with current disposition LEGAL STATUS: 1013 FOLLOW-UP: Will follow Thank you for the consult. Please contact with any questions and/or concerns. Medications and Allergies Allergies Allergy/AdvReac Type Severity Reaction Status Date / Time No Known Allergies Allergy Verified 09/24/20 11:11 Home Medications Medication Instructions Recorded Confirmed Last Taken Type Lisinopril [Zestril] 5 mg PO QDAY 07/13/20 07/13/20 07/12/20 10:00 History hydroCHLOROthiazide [HCTZ] 25 mg PO QDAY 07/13/20 07/13/20 07/12/20 10:00 Histo ry traZODone [Desyrel] 50 mg PO QHS 07/13/20 07/13/20 07/12/20 22:[address] [Luis E Arrington] 500 mg PO TID #90 tablet 07/24/20 Unknown Rx Mirtazapine [Remeron 15mg TAB] 15 mg PO QHS #30 tablet 07/24/20 Unknown Rx risperiDONE [RisperDAL] 2 mg PO BID #60 tablet 07/24/20 Unknown Rx Mental Status Exam - Vital signs Last Vital Signs Temp 97.5 F L 09/25/20 08:36 Pulse 67 09/25/20 08:36 Resp 20 09/25/20 08:36 BP 133/91 09/25/20 08:36 Pulse Ox 100 09/25/20 08:36 Results Result Diagrams: 09/24/20 11:20 09/24/20 11:20 Abnormal lab results 09/24/20 09/24/20 09/24/20 Range/Units 11:20 11:20 11:20 Seg Neutrophils % 73.0 H (40.0-70.0) % Ur Specific [place] (1.003-1.030) Salicylates < 0.3 L (2.8-20.0) mg/dL Acetaminophen 5.0 L (10.0-30.0) ug/mL 09/24/20 Range/Units Unknown Seg Neutrophils % (40.0-70.0) % Ur Specific [place] 1.031 H (1.003-1.030) Salicylates (2.8-20.0) mg/dL Acetaminophen (10.0-30.0) ug/mL All other labs normal.
[2020-09-25] MEDS ORDERED: ONDANSETRON 4 MG ODT TAB PO PRN (10:37)
[2020-09-25] MEDS ORDERED: ACETAMINOPHEN 325 MG TAB PO PRN (10:37)
[2020-09-25] MEDS ORDERED: diphenhydrAMINE 25 MG CAP PO PRN (10:37)
[2020-09-25] MEDS ORDERED: LORazepam 2 MG/ML VIAL IM PRN (10:37)
--- NOTE | 2020-09-25 10:39 | Event Note ---
Date: 09/25/20 The patient was evaluated in the emergency department for symptoms described in the history of present illness. He/she was evaluated in the context of the global COVID-19 pandemic, which necessitated consideration that the patient might be at risk for infection with the virus that causes COVID-19. Institutional protocols and algorithms that pertain to the evaluation of patients at risk for COVID-19 are in a state of rapid change based on information released by regulatory bodies including the CDC and federal and state organizations. These policies and algorithms were followed during the patient's care in the emergency department. Please note that these policies, procedures and recommendations changed on a rapid basis. Patient resting comfortably in stretcher, and in no acute distress. Appears that he was medically cleared on his initial ER evaluation. Laboratory studies, radiology studies, initial ER documentation reviewed and appreciated, nursing documentation reviewed and appreciated, awaiting psychiatric recommendations at this time. Nursing team endorses no acute events this morning. Patient does not appear to have an immediate medical contraindication at this time that would preclude psychiatric evaluation, consultation, placement and disposition. Vital Signs 09/24/20 09/24/20 09/24/20 10:58 19:55 20:47 Temperature 97.7 F 97.8 F 98.2 F Pulse Rate 67 66 Respiratory 20 19 16 Rate Blood Pressure 155/95 Blood Pressure 139/95 [Right] O2 Sat by Pulse 100 100 Oximetry 09/25/20 09/25/20 02:50 08:36 Temperature 97.4 F L 97.5 F L Pulse Rate 67 67 Respiratory 18 20 Rate Blood Pressure Blood Pressure 140/89 133/91 [Right] O2 Sat by Pulse 99 100 Oximetry Lab Results 09/24/20 09/24/20 09/24/20 Range/Units 11:20 11:20 11:20 WBC (4.5-11.0) K/mm3 RBC (3.65-5.03) M/mm3 Hgb (11.8-15.2) gm/dl Hct (35.5-45.6) % MCV (84-94) fl MCH (28-32) pg MCHC (32-34) % RDW (13.2-15.2) % Plt Count (140-440) K/mm3 Lymph % (Auto) (13.4-35.0) % [place] % (Auto) (0.0-7.3) % Eos % (Auto) (0.0-4.3) % Baso % (Auto) (0.0-1.8) % Lymph # (Auto) (1.2-5.4) K/mm3 [place] # (Auto) (0.0-0.8) K/mm3 Eos # (Auto) (0.0-0.4) K/mm3 Baso # (Auto) (0.0-0.1) K/mm3 Seg Neutrophils % (40.0-70.0) % Seg Neutrophils # (1.8-7.7) K/mm3 Sodium 141 (137-145) mmol/L Potassium 3.9 (3.6-5.0) mmol/L Chloride 102.5 (98-107) mmol/L Carbon Dioxide 27 (22-30) mmol/L Anion Gap 15 mmol/L BUN 14 (9-20) mg/dL Creatinine 1.0 (0.8-1.3) mg/dL Estimated GFR > 60 ml/min BUN/Creatinine Ratio 14 % Glucose 92 (75-100) mg/dL Calcium 9.6 (8.4-10.2) mg/dL Urine Color (Yellow) Urine Turbidity (Clear) Urine pH (5.0-7.0) Ur Specific [place] (1.003-1.030) Urine Protein (Negative) mg/dL Urine Glucose (UA) (Negative) mg/dL Urine Ketones (Negative) mg/dL Urine Blood (Negative) Urine Nitrite (Negative) Urine Bilirubin (Negative) Urine Urobilinogen (<2.0) mg/dL Ur Leukocyte Esterase (Negative) Urine WBC (Auto) (0.0-6.0) /HPF Urine RBC (Auto) (0.0-6.0) /HPF Hyaline Casts /LPF Urine Mucus /HPF Salicylates < 0.3 L (2.8-20.0) mg/dL Urine Opiates Screen Urine Methadone Screen Acetaminophen 5.0 L (10.0-30.0) ug/mL Ur Barbiturates Screen Ur Phencyclidine Scrn Ur Amphetamines Screen U Benzodiazepines Scrn Urine Cocaine Screen U Marijuana (THC) Screen Drugs of Abuse Note Plasma/Serum Alcohol (0-0.07) % 09/24/20 09/24/20 09/24/20 Range/Units 11:20 11:20 Unknown WBC 9.0 (4.5-11.0) K/mm3 RBC 4.60 (3.65-5.03) M/mm3 Hgb 14.0 (11.8-15.2) gm/dl Hct 41.3 (35.5-45.6) % MCV 90 (84-94) fl MCH 31 (28-32) pg MCHC 34 (32-34) % RDW 14.4 (13.2-15.2) % Plt Count 193 (140-440) K/mm3 Lymph % (Auto) 19.5 (13.4-35.0) % [place] % (Auto) 4.2 (0.0-7.3) % Eos % (Auto) 2.8 (0.0-4.3) % Baso % (Auto) 0.5 (0.0-1.8) % Lymph # (Auto) 1.8 (1.2-5.4) K/mm3 [place] # (Auto) 0.4 (0.0-0.8) K/mm3 Eos # (Auto) 0.3 (0.0-0.4) K/mm3 Baso # (Auto) 0.0 (0.0-0.1) K/mm3 Seg Neutrophils % 73.0 H (40.0-70.0) % Seg Neutrophils # 6.5 (1.8-7.7) K/mm3 Sodium (137-145) mmol/L Potassium (3.6-5.0) mmol/L Chloride (98-107) mmol/L Carbon Dioxide (22-30) mmol/L Anion Gap mmol/L BUN (9-20) mg/dL Creatinine (0.8-1.3) mg/dL Estimated GFR ml/min BUN/Creatinine Ratio % Glucose (75-100) mg/dL Calcium (8.4-10.2) mg/dL Urine Color Yellow (Yellow) Urine Turbidity Clear (Clear) Urine pH 5.0 (5.0-7.0) Ur Specific [place] 1.031 H (1.003-1.030) Urine Protein <15 mg/dl (Negative) mg/dL Urine Glucose (UA) Neg (Negative) mg/dL Urine Ketones Neg (Negative) mg/dL Urine Blood Neg (Negative) Urine Nitrite Neg (Negative) Urine Bilirubin Neg (Negative) Urine Urobilinogen < 2.0 (<2.0) mg/dL Ur Leukocyte Esterase Neg (Negative) Urine WBC (Auto) 1.0 (0.0-6.0) /HPF Urine RBC (Auto) 2.0 (0.0-6.0) /HPF Hyaline Casts 1 /LPF Urine Mucus 3+ /HPF Salicylates (2.8-20.0) mg/dL Urine Opiates Screen Urine Methadone Screen Acetaminophen (10.0-30.0) ug/mL Ur Barbiturates Screen Ur Phencyclidine Scrn Ur Amphetamines Screen U Benzodiazepines Scrn Urine Cocaine Screen U Marijuana (THC) Screen Drugs of Abuse Note Plasma/Serum Alcohol < 0.01 (0-0.07) % 09/24/20 Range/Units Unknown WBC (4.5-11.0) K/mm3 RBC (3.65-5.03) M/mm3 Hgb (11.8-15.2) gm/dl Hct (35.5-45.6) % MCV (84-94) fl MCH (28-32) pg MCHC (32-34) % RDW (13.2-15.2) % Plt Count (140-440) K/mm3 Lymph % (Auto) (13.4-35.0) % [place] % (Auto) (0.0-7.3) % Eos % (Auto) (0.0-4.3) % Baso % (Auto) (0.0-1.8) % Lymph # (Auto) (1.2-5.4) K/mm3 [place] # (Auto) (0.0-0.8) K/mm3 Eos # (Auto) (0.0-0.4) K/mm3 Baso # (Auto) (0.0-0.1) K/mm3 Seg Neutrophils % (40.0-70.0) % Seg Neutrophils # (1.8-7.7) K/mm3 Sodium (137-145) mmol/L Potassium (3.6-5.0) mmol/L Chloride (98-107) mmol/L Carbon Dioxide (22-30) mmol/L Anion Gap mmol/L BUN (9-20) mg/dL Creatinine (0.8-1.3) mg/dL Estimated GFR ml/min BUN/Creatinine Ratio % Glucose (75-100) mg/dL Calcium (8.4-10.2) mg/dL Urine Color (Yellow) Urine Turbidity (Clear) Urine pH (5.0-7.0) Ur Specific [place] (1.003-1.030) Urine Protein (Negative) mg/dL Urine Glucose (UA) (Negative) mg/dL Urine Ketones (Negative) mg/dL Urine Blood (Negative) Urine Nitrite (Negative) Urine Bilirubin (Negative) Urine Urobilinogen (<2.0) mg/dL Ur Leukocyte Esterase (Negative) Urine WBC (Auto) (0.0-6.0) /HPF Urine RBC (Auto) (0.0-6.0) /HPF Hyaline Casts /LPF Urine Mucus /HPF Salicylates (2.8-20.0) mg/dL Urine Opiates Screen Negative Urine Methadone Screen Negative Acetaminophen (10.0-30.0) ug/mL Ur Barbiturates Screen Negative Ur Phencyclidine Scrn Negative Ur Amphetamines Screen Negative U Benzodiazepines Scrn Negative Urine Cocaine Screen Negative U Marijuana (THC) Screen Negative Drugs of Abuse Note Disclamer Plasma/Serum Alcohol (0-0.07) %
[2020-09-25 20:18] VITALS: BP 134/91
[2020-09-26] MEDS ORDERED: LISINOPRIL 5 MG TAB PO SCH (10:00)
[2020-09-26] MEDS ORDERED: hydroCHLOROthiazide 25 MG TAB PO SCH (10:00)
== END 2020-09-25 23:02 ==
LOC: ED 10:26
DX: F29 Unspecified psychosis not due to a substance or known physiological condition (principal); Z20.822 Contact with and (suspected) exposure to COVID-19; I10 Essential (primary) hypertension; F20.9 Schizophrenia, unspecified; E11.9 Type 2 diabetes mellitus without complications; Z79.899 Other long term (current) drug therapy
CPT/HCPCS: 36415; 70450; 80048; 80307; 81001; 85025; 99285; U0003; 80320; G0480

== ENCOUNTER 2021-06-04 13:48 | Emergency (ER) | payer MEDICARE ==
--- NOTE | 2021-06-04 15:44 | Event Note ---
ED Screening Note Date of service: 06/04/21 Time: 15:42 ED Screening Note: Patient in room stating that he is just sick. He states that he is vomiting blood, then he states that he is not vomiting blood. He states that he has a headache, and then states that he took Tylenol for his headache and he is okay. But he keeps stating that he is just sick and otherwise just mumbling. When asked about SI and HI patient did not say yes or no. This initial assessment/diagnostic orders/clinical plan/treatment(s) is/are subject to change based on patients health status, clinical progression and re- assessment by fellow clinical providers in the ED. Further treatment and workup at subsequent clinical providers discretion. Patient/guardian urged not to elope from the ED as their condition may be serious if not clinically assessed and managed. Initial orders include:
[2021-06-04 16:54] LABS: Hematocrit 39.5 % (35.5-45.6); Hemoglobin 13.3 gm/dl (11.8-15.2); Mean Corpuscular HGB Conc 34 % (32-34); Mean Corpuscular Volume 92 fl (84-94); Platelet Count 174 K/mm3 (140-440)
[2021-06-04 17:05] LABS: Bilirubin,Urine NEG (Negative); Blood,Urine NEG (Negative); Color,Urine Yellow (Yellow); Mucus,Urine 2+ /HPF; Protein,Urine <15 mg/dL mg/dL (Negative); Urobilinogen,Urine < 2.0 mg/dL (<2.0)
[2021-06-04 17:06] LABS: Amphetamine Screen,Urine Negative; Benzodiazepines Screen,Urine Negative; Cannabinoid Screen,Urine Negative; Cocaine Screen,Urine Negative; Methadone Screen,Urine Negative; Opiate Screen,Urine Negative
[2021-06-04 17:19] LABS: Alanine Aminotransferase 37 units/L (7-56); Albumin 3.9 g/dL (3.9-5); BUN/Creatinine Ratio 14; Blood Urea Nitrogen 15 mg/dL (9-20); Hemolysis Index 5
--- NOTE | 2021-06-04 18:40 | Emergency Department Report ---
ED Psych HPI - General Chief Complaint: Psych Stated Complaint: PYSCH EVAL Time Seen by Provider: 06/04/21 18:09 Source: patient Mode of arrival: Ambulatory Limitations: Other (psyhcosis) - History of Present Illness MD Complaint: altered mental status, other (disorgainsed behaviour ) -: month(s) Associated Psychiatric Symptoms: racing thoughts, auditory hallucinations, delusions Quality: constant Associated Symptoms: denies other symptoms - Related Data Home Medications Medication Instructions Recorded Confirmed Last Taken Lisinopril [Zestril] 5 mg PO QDAY 07/13/20 07/13/20 07/12/20 10:00 hydroCHLOROthiazide [HCTZ] 25 mg PO QDAY 07/13/20 07/13/20 07/12/20 10:00 traZODone [Desyrel] 50 mg PO QHS 07/13/20 07/13/20 07/12/20 22:00 Previous Rx's Medication Instructions Recorded Last Taken Type Divalproex Dr [Depakote Dr] 500 mg PO TID #90 tablet 07/24/20 Unknown Rx Mirtazapine [Remeron 15mg TAB] 15 mg PO QHS #30 tablet 07/24/20 Unknown Rx risperiDONE [RisperDAL] 2 mg PO BID #60 tablet 07/24/20 Unknown Rx Allergies Allergy/AdvReac Type Severity Reaction Status Date / Time No Known Allergies Allergy Verified 09/24/20 11:11 ED Review of Systems ROS: Stated complaint: PYSCH EVAL Other details as noted in HPI Comment: Unobtainable due to pts medical conditions ED Past Medical Hx - Past Medical History Hx Hypertension: Yes Hx Congestive Heart Failure: No Hx Diabetes: Yes Hx Renal Disease: No Hx Arthritis: No Hx Seizures: No Hx Asthma: No Hx COPD: No Hx Dementia: No Additional medical history: SCHIZOEFFCTIVE DISORDER - Surgical History Hx Cholecystectomy: No Hx Appendectomy: No - Social History Smoking Status: Never Smoker Substance Use Type: None - Medications Home Medications: Home Medications Medication Instructions Recorded Confirmed Last Taken Type Lisinopril [Zestril] 5 mg PO QDAY 07/13/20 07/13/20 07/12/20 10:00 History hydroCHLOROthiazide [HCTZ] 25 mg PO QDAY 07/13/20 07/13/20 07/12/20 10:00 History traZODone [Desyrel] 50 mg PO QHS 07/13/20 07/13/20 07/12/20 22:[address] [Depakote Dr] 500 mg PO TID #90 tablet 07/24/20 Unknown Rx Mirtazapine [Remeron 15mg TAB] 15 mg PO QHS #30 tablet 07/24/20 Unknown Rx risperiDONE [RisperDAL] 2 mg PO BID #60 tablet 07/24/20 Unknown Rx ED Physical Exam - General Limitations: No Limitations General appearance: alert, other (confused psychotic ) - Head Head exam: Present: atraumatic, normocephalic - Eye Eye exam: Present: normal appearance - ENT ENT exam: Present: mucous membranes moist - Neck Neck exam: Present: normal inspection - Respiratory Respiratory exam: Present: normal lung sounds bilaterally. Absent: respiratory distress - Cardiovascular Cardiovascular Exam: Present: regular rate, normal rhythm. Absent: systolic murmur, diastolic murmur, rubs, gallop - GI/Abdominal GI/Abdominal exam: Present: soft, normal bowel sounds - Rectal Rectal exam: Present: deferred - Extremities Exam Extremities exam: Present: normal inspection - Back Exam Back exam: Present: normal inspection - Neurological Exam Neurological exam: Present: alert - Psychiatric Psychiatric exam: Present: other (disprgainsed ) - Expanded Psychiatric Exam Expanded Focused psych exam: Present: internal stimuli, perseverating, loose associations - Skin Skin exam: Present: warm, dry, intact, normal color. Absent: rash ED Course Vital Signs 06/04/21 06/05/21 06/05/21 15:15 09:56 10:30 Temperature 98 F 97.8 F Pulse Rate 69 89 89 Respiratory 16 18 Rate Blood Pressure 163/112 Blood Pressure 145/81 140/85 [Left] O2 Sat by Pulse 99 98 Oximetry 06/05/21 06/05/21 16:01 16:03 Temperature 98.1 F Pulse Rate 84 Respiratory 18 Rate Blood Pressure Blood Pressure 149/102 [Left] O2 Sat by Pulse 98 99 Oximetry ED Medical Decision Making - Lab Data Result diagrams: 06/04/21 15:57 06/04/21 15:57 Critical care attestation.: If time is entered above; I have spent that time in minutes in the direct care of this critically ill patient, excluding procedure time. ED Disposition Clinical Impression: Psychosis Disposition: [facility] Is pt being admited?: No Does the pt Need Aspirin: No Condition: Stable Referrals: PRIMARY CARE, [Primary Care Provider] - 3-5 Days
[2021-06-05] MEDS ORDERED: HALOPERIDOL LACTATE 5 MG/1 ML INJ IM PRN (07:35)
[2021-06-05] MEDS ORDERED: LORazepam 2 MG/ML VIAL IM PRN (07:35)
--- NOTE | 2021-06-05 07:36 | Event Note ---
The patient was evaluated in the emergency department for symptoms described in the history of present illness. He/she was evaluated in the context of the global COVID-19 pandemic, which necessitated consideration that the patient might be at risk for infection with the virus that causes COVID-19. Institutional protocols and algorithms that pertain to the evaluation of patients at risk for COVID-19 are in a state of rapid change based on information released by regulatory bodies including the CDC and federal and state organizations. These policies and algorithms were followed during the patient's care in the emergency department. Please note that these policies, procedures and recommendations changed on a rapid basis. Laboratory studies, vital signs, nursing documentation, ER documentation, and psychiatric documentation are reviewed and appreciated. Patient is awake and acutely disorganized and appears to psychotic at this time The patient is awake and not in any acute distress The patient was deemed medically suitable for psychiatric disposition and placement during his initial ER evaluation. The patient continues to remain medically suitable for psychiatric placement and disposition. He is currently pending psychiatric placement. Vital Signs 06/04/21 15:15 Temperature 98 F Pulse Rate 69 Respiratory 16 Rate Blood Pressure 145/81 [Left] O2 Sat by Pulse 99 Oximetry Lab Results 06/04/21 06/04/21 06/04/21 Range/Units 15:57 15:57 15:57 WBC 8.3 (4.5-11.0) K/mm3 RBC 4.30 (3.65-5.03) M/mm3 Hgb 13.3 (11.8-15.2) gm/dl Hct 39.5 (35.5-45.6) % MCV 92 (84-94) fl MCH 31 (28-32) pg MCHC 34 (32-34) % RDW 14.0 (13.2-15.2) % Plt Count 174 (140-440) K/mm3 Sodium 140 (137-145) mmol/L Potassium 3.6 (3.6-5.0) mmol/L Chloride 104.0 (98-107) mmol/L Carbon Dioxide 24 (22-30) mmol/L Anion Gap 16 mmol/L BUN 15 (9-20) mg/dL Creatinine 1.1 (0.8-1.3) mg/dL Estimated GFR > 60 ml/min BUN/Creatinine Ratio 14 % Glucose 119 H (75-100) mg/dL Calcium 9.0 (8.4-10.2) mg/dL Total Bilirubin 0.60 (0.1-1.2) mg/dL AST 32 (5-40) units/L ALT 37 (7-56) units/L Alkaline Phosphatase 82 (35-129) units/L Total Protein 6.5 (6.3-8.2) g/dL Albumin 3.9 (3.9-5) g/dL Albumin/Globulin Ratio 1.5 % Urine Color (Yellow) Urine Turbidity (Clear) Urine pH (5.0-7.0) Ur Specific [place] (1.003-1.030) Urine Protein (Negative) mg/dL Urine Glucose (UA) (Negative) mg/dL Urine Ketones (Negative) mg/dL Urine Blood (Negative) Urine Nitrite (Negative) Urine Bilirubin (Negative) Urine Urobilinogen (<2.0) mg/dL Ur Leukocyte Esterase (Negative) Urine WBC (Auto) (0.0-6.0) /HPF Urine RBC (Auto) (0.0-6.0) /HPF Urine Mucus /HPF Salicylates < 0.3 L (2.8-20.0) mg/dL Urine Opiates Screen Urine Methadone Screen Acetaminophen (10.0-30.0) ug/mL Ur Barbiturates Screen Ur Phencyclidine Scrn Ur Amphetamines Screen U Benzodiazepines Scrn Urine Cocaine Screen U Marijuana (THC) Screen Drugs of Abuse Note Plasma/Serum Alcohol (0-0.07) % 06/04/21 06/04/21 06/04/21 Range/Units 15:57 15:57 Unknown WBC (4.5-11.0) K/mm3 RBC (3.65-5.03) M/mm3 Hgb (11.8-15.2) gm/dl Hct (35.5-45.6) % MCV (84-94) fl MCH (28-32) pg MCHC (32-34) % RDW (13.2-15.2) % Plt Count (140-440) K/mm3 Sodium (137-145) mmol/L Potassium (3.6-5.0) mmol/L Chloride (98-107) mmol/L Carbon Dioxide (22-30) mmol/L Anion Gap mmol/L BUN (9-20) mg/dL Creatinine (0.8-1.3) mg/dL Estimated GFR ml/min BUN/Creatinine Ratio % Glucose (75-100) mg/dL Calcium (8.4-10.2) mg/dL Total Bilirubin (0.1-1.2) mg/dL AST (5-40) units/L ALT (7-56) units/L Alkaline Phosphatase (35-129) units/L Total Protein (6.3-8.2) g/dL Albumin (3.9-5) g/dL Albumin/Globulin Ratio % Urine Color Yellow (Yellow) Urine Turbidity Clear (Clear) Urine pH 7.0 (5.0-7.0) Ur Specific [place] 1.026 (1.003-1.030) Urine Protein <15 mg/dl (Negative) mg/dL Urine Glucose (UA) Neg (Negative) mg/dL Urine Ketones Neg (Negative) mg/dL Urine Blood Neg (Negative) Urine Nitrite Neg (Negative) Urine Bilirubin Neg (Negative) Urine Urobilinogen < 2.0 (<2.0) mg/dL Ur Leukocyte Esterase Neg (Negative) Urine WBC (Auto) 3.0 (0.0-6.0) /HPF Urine RBC (Auto) 1.0 (0.0-6.0) /HPF Urine Mucus 2+ /HPF Salicylates (2.8-20.0) mg/dL Urine Opiates Screen Urine Methadone Screen Acetaminophen 5.0 L (10.0-30.0) ug/mL Ur Barbiturates Screen Ur Phencyclidine Scrn Ur Amphetamines Screen U Benzodiazepines Scrn Urine Cocaine Screen U Marijuana (THC) Screen Drugs of Abuse Note Plasma/Serum Alcohol < 0.01 (0-0.07) % 06/04/21 Range/Units Unknown WBC (4.5-11.0) K/mm3 RBC (3.65-5.03) M/mm3 Hgb (11.8-15.2) gm/dl Hct (35.5-45.6) % MCV (84-94) fl MCH (28-32) pg MCHC (32-34) % RDW (13.2-15.2) % Plt Count (140-440) K/mm3 Sodium (137-145) mmol/L Potassium (3.6-5.0) mmol/L Chloride (98-107) mmol/L Carbon Dioxide (22-30) mmol/L Anion Gap mmol/L BUN (9-20) mg/dL Creatinine (0.8-1.3) mg/dL Estimated GFR ml/min BUN/Creatinine Ratio % Glucose (75-100) mg/dL Calcium (8.4-10.2) mg/dL Total Bilirubin (0.1-1.2) mg/dL AST (5-40) units/L ALT (7-56) units/L Alkaline Phosphatase (35-129) units/L Total Protein (6.3-8.2) g/dL Albumin (3.9-5) g/dL Albumin/Globulin Ratio % Urine Color (Yellow) Urine Turbidity (Clear) Urine pH (5.0-7.0) Ur Specific [place] (1.003-1.030) Urine Protein (Negative) mg/dL Urine Glucose (UA) (Negative) mg/dL Urine Ketones (Negative) mg/dL Urine Blood (Negative) Urine Nitrite (Negative) Urine Bilirubin (Negative) Urine Urobilinogen (<2.0) mg/dL Ur Leukocyte Esterase (Negative) Urine WBC (Auto) (0.0-6.0) /HPF Urine RBC (Auto) (0.0-6.0) /HPF Urine Mucus /HPF Salicylates (2.8-20.0) mg/dL Urine Opiates Screen Negative Urine Methadone Screen Negative Acetaminophen (10.0-30.0) ug/mL Ur Barbiturates Screen Negative Ur Phencyclidine Scrn Negative Ur Amphetamines Screen Negative U Benzodiazepines Scrn Negative Urine Cocaine Screen Negative U Marijuana (THC) Screen Negative Drugs of Abuse Note Disclamer Plasma/Serum Alcohol (0-0.07) %
[2021-06-05] MEDS: LISINOPRIL 5 MG TAB PO SCH (10:30)
[2021-06-05] MEDS: hydroCHLOROthiazide 25 MG TAB PO SCH (10:31)
--- NOTE | 2021-06-05 12:14 | Consultation ---
History of Present Illness - Reason for Consult Consult date: 06/05/21 Reason for consult: Mental health evaluation - History of Present Psychiatric Illness The patient is a 55 year old male seen today. He presents with disorganized thoughts and responding to internal stimuli. The patient is unable to participate in assessment at this time. PAST PSYCHIATRIC HISTORY: unable to obtain PAST MEDICAL HISTORY: None reported Family Psychiatric History None reported SOCIAL HISTORY Unable to obtain ROS: Unable to obtain MENTAL STATUS EXAMINATION Unable to obtain Assessment and Plan (1) Psychosis Treatment Plan 1013 Start Zyprexa 10mg po BID Risks, benefits and alternatives of medications discussed with the patient, questions answered and consent obtained from patient. PSYCHOTHERAPY: Supportive psychotherapy provided MEDICAL: Per primary team DELIRIUM PRECAUTIONS: Please re-orient patient frequently, keep lights on during the day, and minimize benzodiazepines and opiates as these medications could worsen patient's confusion. ENGLISH FACULTY MEMBER: per primary DISPOSITION: Recommend acute inpatient psychiatric hospitalization Will follow. Thank you for the consult. Please contact with any questions and/or concerns. Case staffed with Dr. Hurtado Medications and Allergies Allergies Allergy/AdvReac Type Severity Reaction Status Date / Time No Known Allergies Allergy Verified 09/24/20 11:11 Home Medications Medication Instructions Recorded Confirmed Last Taken Type Lisinopril [Zestril] 5 mg PO QDAY 07/13/20 07/13/20 07/12/20 10:00 History hydroCHLOROthiazide [HCTZ] 25 mg PO QDAY 07/13/20 07/13/20 07/12/20 10:00 History traZODone [Desyrel] 50 mg PO QHS 07/13/20 07/13/20 07/12/20 22:00 History Divalproex [Luis E Arrington] 500 mg PO TID #90 tablet 07/24/20 Unknown Rx Mirtazapine [Remeron 15mg TAB] 15 mg PO QHS #30 tablet 07/24/20 Unknown Rx risperiDONE [RisperDAL] 2 mg PO BID #60 tablet 07/24/20 Unknown Rx Active Meds: Active Medications Haloperidol Lactate (Haloperidol Lactate 5 Mg/1 Ml Inj) 5 mg IM Q6HR PRN PRN Reason: Agitation Hydrochlorothiazide (Hydrochlorothiazide 25 Mg Tab) 25 mg PO QDAY DANELLE Last Admin: 06/05/21 10:31 Dose: 25 mg Lisinopril (Lisinopril 5 Mg Tab) 5 mg PO QDAY DANELLE Last Admin: 06/05/21 10:30 Dose: 5 mg Lorazepam (Lorazepam 2 Mg/Ml Vial) 2 mg IM Q4HR PRN PRN Reason: Agitation Mental Status Exam - Vital signs Last Vital Signs Temp 97.8 F 06/05/21 09:56 Pulse 89 06/05/21 10:30 Resp 18 06/05/21 09:56 BP 163/112 06/05/21 10:30 Pulse Ox 98 06/05/21 09:56 Results Result Diagrams: 06/04/21 15:57 06/04/21 15:57 Abnormal lab results 06/04/21 06/04/21 06/04/21 Range/Units 15:57 15:57 15:57 Glucose 119 H (75-100) mg/dL Salicylates < 0.3 L (2.8-20.0) mg/dL Acetaminophen 5.0 L (10.0-30.0) ug/mL All other labs normal.
[2021-06-06] MEDS: LISINOPRIL 5 MG TAB PO SCH (09:32)
[2021-06-06] MEDS: hydroCHLOROthiazide 25 MG TAB PO SCH (09:32)
--- NOTE | 2021-06-06 11:08 | Progress Note ---
Subjective - Reason for Consult Consult date: 06/06/21 Reason for consult: Psychosis - Chief Complaint Chief complaint: The patient was seen this morning. He states he is ok. the patient continues to present with disorganized thoughts and responding to internal stimuli. PAST PSYCHIATRIC HISTORY: unable to obtain PAST MEDICAL HISTORY: None reported Family Psychiatric History None reported SOCIAL HISTORY Unable to obtain ROS: Unable to obtain MENTAL STATUS EXAMINATION Unable to obtain Assessment and Plan (1) Psychosis Treatment Plan 1013 Start Zyprexa 10mg po BID Risks, benefits and alternatives of medications discussed with the patient, questions answered and consent obtained from patient. PSYCHOTHERAPY: Supportive psychotherapy provided MEDICAL: Per primary team DELIRIUM PRECAUTIONS: Please re-orient patient frequently, keep lights on during the day, and minimize benzodiazepines and opiates as these medications could worsen patient's confusion. 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 Thank you for the consult. Please contact with any questions and/or concerns. Case staffed with Dr. Hurtado Mental Status Exam - Vital signs Last Vital Signs Temp 98 F 06/06/21 09:27 Pulse 66 06/06/21 09:32 Resp 20 06/06/21 09:27 BP 140/94 06/06/21 09:32 Pulse Ox 100 06/06/21 09:27
--- NOTE | 2021-06-06 11:44 | Emergency Department Report ---
Blank Doc - Documentation Documentation: 55-year-old male with psychosis currently on 1013. According to chart review patient continues to exhibit psychotic behavior. Tolerating p.o. medication. Patient has been accepted to [facility] pending transfer today
[2021-06-06 21:48] VITALS: BP 129/75
== END 2021-06-06 22:11 ==
LOC: ED 13:48
DX: F29 Unspecified psychosis not due to a substance or known physiological condition (principal); I10 Essential (primary) hypertension; E11.8 Type 2 diabetes mellitus with unspecified complications; Z20.822 Contact with and (suspected) exposure to COVID-19
CPT/HCPCS: 36415; 80053; 80307; 81001; 85027; 99285; U0003; 80320; G0480